=== PATIENT | female | born 1960 ===

== ENCOUNTER → 2021-01-02 10:03 | Outpatient (BNVA) | payer OTHER, SELFPAY | PROVIDERS: Visit Provider Nurse Practitioner ==

== ENCOUNTER 2021-05-15 11:48 | Emergency (ER) | payer OTHER, SELFPAY ==
--- NOTE | ~2021-05-15 | CT_ITS ---
EXAMINATION: CT ABDOMEN AND PELVIS WITHOUT CONTRAST CLINICAL INFORMATION: Left lower quadrant abdominal pain and flank pain. COMPARISON: None TECHNIQUE: Multidetector volumetric imaging was performed from the superior aspect of the liver through the pubic symphysis. Sagittal and coronal reformatted images were obtained on the technologist's workstation. This CT examination was performed using dose optimization techniques as appropriate, variously including the following: *Automated exposure control *Adjustment of mA and/or kV according to patient size (this includes techniques or standardized protocols for targeted exams where dose is matched to indication/reason for exam; i.e. extremities or head) *Use of iterative reconstruction technique DLP: 645 mGy-cm FINDINGS: LUNG BASES: The visualized lung bases are unremarkable. No pleural or pericardial effusion. LIVER, GALLBLADDER, AND BILIARY TREE: There is fatty infiltration of the liver without focal mass or intrahepatic bile duct dilatation. Hepatomegaly is present with vertical span of 21 cm. Status post cholecystectomy. PANCREAS: Unremarkable. SPLEEN: Unremarkable. ADRENAL GLANDS: Unremarkable. KIDNEYS AND URETERS: The kidneys are normal in size, shape, and attenuation. No hydronephrosis, hydroureter, or definite ureteral calculi seen. No perinephric stranding. BLADDER: Unremarkable. GASTROINTESTINAL TRACT: No dilated loops of large or small bowel are evident. No free air or free fluid is seen. No evidence of acute diverticulitis or colitis. There is sigmoid diverticulosis. The appendix is visualized and appears unremarkable. ABDOMINAL WALL: No significant hernia is appreciated. LYMPH NODES: No lymphadenopathy appreciated. VASCULAR: Unremarkable. PELVIC VISCERA: No suspicious mass. Numerous phleboliths are present. OSSEOUS STRUCTURES: No suspicious destructive bony lesions identified. 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 CT/CT abdomen pelvis wo con IMPRESSION: Diffuse fatty infiltration of the liver with hepatomegaly. No evidence of obstructive uropathy. No evidence of acute diverticulitis.
[2021-05-15 11:59] VITALS: BP 165/75; PULSE 59; RESP 18; TEMP 36.4; O2SAT 99
[2021-05-15 12:21] VITALS: BP 142/78; PULSE 76; RESP 16; TEMP 36.8; O2SAT 98; BMI 31.8
[2021-05-15 13:12] VITALS: BP 125/63; PULSE 54; RESP 17; O2SAT 100
[2021-05-15 13:18] LABS: MANUAL DIFF FLAG NO
[2021-05-15 13:20] LABS: Basophils Percent Auto 0.6 % (0-2); Eosinophils Absolute Auto 0.1 X10*3/uL (0.0-0.4); Eosinophils Percent Auto 2.5 % (0-4); Hematocrit 38.7 % (37-47); Hemoglobin 12.6 g/dl (12.0-16.0); Imm Gran Abs Auto 0.01 X10*3/uL (0.00-0.03); Imm Gran Pct Auto 0.2 % (0.0-0.4); Lymphocytes Percent Auto 41.2 % (20-40); Mean Corpuscular HGB Conc 32.6 g/dl (31.0-35.0); Mean Corpuscular Hemoglobin 29.9 pg (27.0-33.0); Mean Corpuscular Volume 91.9 fL (80-98); Mean Platelet Volume 10.2 fL (9.4-12.3); Monocytes Absolute Auto 0.3 X10*3/uL (0.1-1.2); Neutrophils Absolute Auto 2.4 X10*3/uL (2.0-8.3); Neutrophils Percent Auto 48.5 % (45-73); Platelet Count 227 X10*3/uL (160-400); Red Blood Count 4.21 X10*6/uL (4.20-5.50); White Blood Count 4.9 X10*3/uL (4.8-10.8)
--- NOTE | 2021-05-15 13:50 | ED.ABDPAIN ---
HPI - Abdominal Pain General Chief Complaint: Abdominal Pain Stated Complaint: urine problems Time Seen by Provider: 05/15/21 12:18 Source: patient Mode of arrival: ambulatory Limitations: language barrier (Vietnamese [place]) History of Present Illness HPI narrative: 60-year-old female with a past medical history of hypertension, constipation and GERD presenting to the ED with complaints of left lower quadrant/suprapubic abdominal pain with associated dysuria/frequency and white thin malodorous discharge intermittently for the past 2 months worse today. Initially she presented to the urgent care and they obtained a UA which was negative for nitrates or white blood cells and leukocytes although she had trace of red blood cells therefore they sent her here for further evaluation and treatment to rule out kidney stones. MD elicited complaint: abdominal pain Pertinent past history: constipation Onset (ago): month(s) (Intermittently for the past 2 months) Location: LLQ and suprapubic Severity: mild Quality: cramping and aching Migration to: no migration Exacerbating factors: nothing and other Relieving factors: nothing Associated symptoms: denies other symptoms Related Data Previous Rx's Medication Instructions Recorded lisinopril 2.5 mg tablet 2.5 mg PO DAILY 90 Days #90 tab 03/04/21 omeprazole 20 mg capsule,delayed 20 mg PO DAILY 90 Days #90 cap 03/24/21 release fluconazole [Diflucan] 150 mg PO Q3D #2 tab 05/15/21 metronidazole [Flagyl] 500 mg PO BID 7 Days #14 tab 05/15/21 Allergies Allergy/AdvReac Type Severity Reaction Status Date / Time penicillin G Allergy Unknown rash, Verified 08/01/20 00:00 swelling penicillin V Allergy Unknown swelling Verified 12/21/19 00:00 Review of Systems Review of Systems Constitutional : No Fever, No Chills ENT/Mouth : No sore throat, No Rhinorrhea Eyes: No Eye Pain, No Redness Cardiovascular : No Chest Pain, No SOB Respiratory : No Cough, No Sputum, No Wheezing Gastrointestinal : Positive abdominal pain,No constipation, No Nausea, No Vomiting, No Diarrhea Genitourinary : Positive abnormal discharge, positive dysuria/urinary urgency/frequency, No irregular bleeding, No pelvic pain Musculoskeletal : No Myalgias Skin : No rash Neuro : No Weakness, No Headache Psych : No Anxiety/Panic, No Depression Heme/Lymph: No bruising, No Lymphadenopathy Endocrine : No Polyuria, No Polydipsia Yes all other systems are reviewed and are negative Physical Exam Vital Signs: Vital Signs: Last Vital Signs Temp 98.2 F 05/15/21 12:21 Pulse 54 05/15/21 13:12 Resp 17 05/15/21 13:12 BP 125/63 05/15/21 13:12 Pulse Ox 100 05/15/21 13:12 Body Mass Index 31.8 vital signs have been reviewed as normal and appeared to be correct. Blood pressure normal. Heart rate normal. Respiration rate normal. Temperature normal. Oxygen saturation normal. Appearance: Alert. Oriented X3. No acute distress. Head: Normal external exam. Normocephalic. Atraumatic. Eyes: PERRLA. EOMI. Conjunctiva and sclera normal. Eyelids normal. ENT: Pharynx normal. Uvula midline. Moist mucous membranes. Neck: Normal inspection. Neck supple. FROM. No adenopathy. Thyroid Normal. No meningeal signs. No neck mass noted. CVS: Normal heart rate and rhythm. Heart sound normal. No murmurs noted. Pulses normal throughout. Respiratory: No respiratory distress. Painless inspiration. Breath sounds normal. No wheezes/rales/rhonchi noted. Chest nontender. No accessory muscle usage noted or decreased air movement noted. Abdomen: Soft and nontender. Bowel sounds normal in all 4 quadrants. No distention noted. No organomegaly noted. No visible injury noted. : Supervised by SAQIB Llamas. Normal external appearance of urethra. No lesions/lacerations or tenderness noted. Speculum exam normal appearance/palpation of vagina normal. Patient with a thin cottage cheese white colored discharge. Otherwise no vaginal erythema. No foreign bodies noted. No vaginal laceration/lesions or active bleeding noted. No tissue present in vagina. No vaginal mass noted. No vaginal swelling noted. No vaginal tenderness noted. Normal appearance of cervix. Normal palpation of cervix. Cervical os is closed. No abnormal cervical discharge noted. No cervical lesion/mass. No Bartholin cyst noted. No cervical motion tenderness noted. Negative chandelier sign. Normal bimanual exam. Uterine size normal. Bladder normal to palpation. Uterine consistency normal. Normal cervical palpation. Uterine mobility normal. Uterine shape normal. Normal adnexa. Normal rectovaginal exam. Back: No CVA tenderness. Full range of motion noted. Skin: Skin warm and dry. Normal skin color. Normal skin turgor. No rashes/lesions/lacerations noted. Extremities: No lower extremity edema. Extremities exhibit normal range of motion. Extremities nontender. Neuro: Oriented X 3. No motor deficit. No sensory deficit. Reflexes normal. Course Course Course Narrative: 60-year-old female with a past medical history of hypertension, constipation and GERD presenting to the ED with complaints of left lower quadrant/suprapubic abdominal pain with associated dysuria/frequency and white thin malodorous discharge intermittently for the past 2 months worse today. - labs obtained and all within normal limits. Patient had a outpatient UA from urgent care which was negative for any evidence of UTI only had trace of blood. CT scan of abdomen and pelvis revealed diffuse fatty infiltrate of liver with hepatomegaly otherwise no other acute processes were noted. - on vaginal exam it appears that patient has a yeast infection therefore will treat for bacterial vaginosis and yeast. Along with instructions follow-up with her primary care provider and to return if any new or worsening symptoms. Patient and daughter at bedside understand and agree with this plan. MDM - Abdominal Pain Medical Records Attestation: I reviewed the patient's medical records. Lab Data Attestation: I reviewed the patient's lab results. Result diagrams: 05/15/21 13:02 05/15/21 13:02 Labs: Lab Results 05/15/21 05/15/21 Range/Units 13:02 13:02 WBC 4.9 (4.8-10.8) X10*3/uL RBC 4.21 (4.20-5.50) X10*6/uL Hgb 12.6 (12.0-16.0) g/dl Hct 38.7 (37-47) % MCV 91.9 (80-98) fL MCH 29.9 (27.0-33.0) pg MCHC 32.6 (31.0-35.0) g/dl RDW 13.0 (11.0-16.0) % Plt Count 227 (160-400) X10*3/uL MPV 10.2 (9.4-12.3) fL Immature Gran % (Auto) 0.2 (0.0-0.4) % Neut % (Auto) 48.5 (45-73) % Lymph % (Auto) 41.2 H (20-40) % [place] % (Auto) 7.0 (2-11) % Eos % (Auto) 2.5 (0-4) % Baso % (Auto) 0.6 (0-2) % Lymph # (Auto) 2.0 (1.2-4.9) X10*3/uL [place] # (Auto) 0.3 (0.1-1.2) X10*3/uL Eos # (Auto) 0.1 (0.0-0.4) X10*3/uL Baso # (Auto) 0.0 (0.0-0.2) X10*3/uL Abs Immat Gran (auto) 0.01 (0.00-0.03) X10*3/uL Absolute Neuts (auto) 2.4 (2.0-8.3) X10*3/uL Absolute Nucleated RBC 0.000 (0.0-0.012) X10*3/uL Nucleated RBC % (auto) 0.0 (0.0-0.2) /100WBC Sodium 142 (135-145) mmol/L Potassium 4.1 (3.3-5.1) mmol/L Chloride 108 (96-108) mmol/L Carbon Dioxide 26 (22-29) mmol/L Anion Gap 12 (12-20) BUN 14 (9-16) mg/dL Creatinine 0.69 (0.5-1.4) mg/dL Estim Creat Clear Calc 86.4 Estimated GFR > 60 Random Glucose 93 (60-115) mg/dL Calcium 9.2 (8.4-10.2) mg/dL Magnesium 2.1 (1.6-2.6) mg/dL Total Bilirubin 0.6 (0.0-1.0) mg/dL AST 21 (5-31) U/L ALT 37 H (0-31) U/L Alkaline Phosphatase 59 (39-117) U/L Total Protein 6.7 (6.5-8.0) g/dL Albumin 4.2 (3.5-5.0) g/dL Lipase 15 (8-78) U/L Beta HCG, Quant 3 mIU/mL Imaging Data CT scan of abdomen pelvis without IV contrast: Attestation: I personally reviewed and interpreted this imaging study as follows: Radiologist's impression: FINDINGS: LUNG BASES: The visualized lung bases are unremarkable. No pleural or pericardial effusion. LIVER, GALLBLADDER, AND BILIARY TREE: There is fatty infiltration of the liver without focal mass or intrahepatic bile duct dilatation. Hepatomegaly is present with vertical span of 21 cm. Status post cholecystectomy. PANCREAS: Unremarkable. SPLEEN: Unremarkable. ADRENAL GLANDS: Unremarkable. KIDNEYS AND URETERS: The kidneys are normal in size, shape, and attenuation. No hydronephrosis, hydroureter, or definite ureteral calculi seen. No perinephric stranding. BLADDER: Unremarkable. GASTROINTESTINAL TRACT: No dilated loops of large or small bowel are evident. No free air or free fluid is seen. No evidence of acute diverticulitis or colitis. There is sigmoid diverticulosis. The appendix is visualized and appears unremarkable. ABDOMINAL WALL: No significant hernia is appreciated. LYMPH NODES: No lymphadenopathy appreciated. VASCULAR: Unremarkable. PELVIC VISCERA: No suspicious mass. Numerous phleboliths are present. OSSEOUS STRUCTURES: No suspicious destructive bony lesions identified. 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 CT/CT abdomen pelvis wo con IMPRESSION: Diffuse fatty infiltration of the liver with hepatomegaly. No evidence of obstructive uropathy. No evidence of acute diverticulitis. Discharge Plan Discharge Clinical Impression: Abdominal pain, Divya vaginitis, Bacterial vaginosis, Hepatosplenomegaly Patient Disposition: Home, Self-Care Instructions: Bacterial Vaginosis (ED), Yeast Infection (ED) Prescriptions: New metronidazole [Flagyl] 500 mg tablet 500 mg PO BID 7 Days Qty: 14 RF: 0 fluconazole [Diflucan] 150 mg tablet 150 mg PO Q3D Qty: 2 RF: 0 No Action lisinopril 2.5 mg tablet 2.5 mg PO DAILY 90 Days Qty: 90 RF: 3 omeprazole 20 mg capsule,delayed release(DR/EC) 20 mg PO DAILY 90 Days Qty: 90 RF: 3 Referrals: Koby Phelps MD [Physician] - 2 days Korin Silva MD [Primary Care Provider] - 2 days Print Language: Vietnamese [facility] Past Medical History Attestation statement: The following information was validated with the patient. Social History Social History Household Members: Children Alcohol intake: never Advance Directives: No Advance Directives Information Provided: No Patient : No Current occupational status: retired
[2021-05-15 13:58] LABS: Anion Gap 12 (12-20)
[2021-05-15 14:00] LABS: Alanine Aminotransferase 37 U/L (0-31); Albumin Level 4.2 g/dL (3.5-5.0); Alkaline Phosphatase 59 U/L (39-117); Aspartate Amino Transferase 21 U/L (5-31); Bilirubin Total 0.6 mg/dL (0.0-1.0); Blood Urea Nitrogen 14 mg/dL (9-16); Calcium 9.2 mg/dL (8.4-10.2); Carbon Dioxide 26 mmol/L (22-29); Chloride 108 mmol/L (96-108); Creatinine Clr Calc Pharmacy 86.4; Estimated Glomerular Filt Rate > 60; Glucose Random 93 mg/dL (60-115); Lipase 15 U/L (8-78); Magnesium 2.1 mg/dL (1.6-2.6); Potassium 4.1 mmol/L (3.3-5.1); Sodium 142 mmol/L (135-145); Total Protein 6.7 g/dL (6.5-8.0)
[2021-05-15 14:26] LABS: HCG Quantitative 3 mIU/mL
[2021-05-15 14:44] VITALS: BP 115/59; PULSE 53; RESP 18; O2SAT 99
--- NOTE | 2021-05-15 15:23 | PC.NURSE ---
discharge instructions given by provider verbally. Written instructions given in Croatian. Pt denies any questions. Peripheral iv removed and pressure bandage applied
[2021-05-16 09:41] LABS: BV Int Neg Control Negative (Negative); BV Int Pos Control Positive (Positive)
== END 2021-05-15 15:25 | disposition home or self-care (01) ==
PROVIDERS: Physician Assistant Medical; Emergency Provider Emergency Medicine Emergency Medical Services; PCP Internal Medicine
DX: B37.3 Candidiasis of vulva and vagina (principal); R10.32 Left lower quadrant pain; R16.2 Hepatomegaly with splenomegaly, not elsewhere classified; I10 Essential (primary) hypertension
CPT/HCPCS: 36415; 74176; 80053; 83690; 83735; 84702; 85025; 87480; 87510; 87660; 96360; 99284

== ENCOUNTER 2022-03-22 09:55 | Outpatient (REF) | payer OTHER, SELFPAY ==
[2022-03-22 11:06] LABS: Alanine Aminotransferase 34 U/L (0-31); Albumin Level 4.3 g/dL (3.5-5.0); Alkaline Phosphatase 64 U/L (39-117); Anion Gap 9 (12-20); Aspartate Amino Transferase 20 U/L (5-31); Bilirubin Total 0.6 mg/dL (0.0-1.0); Blood Urea Nitrogen 9 mg/dL (9-16); Calcium 9.7 mg/dL (8.4-10.2); Carbon Dioxide 31 mmol/L (22-29); Chloride 104 mmol/L (96-108); Cholesterol 193 mg/dL; Estimated Glomerular Filt Rate > 60; Glucose Fasting 101 mg/dL (60-99); HDL Cholesterol 38 mg/dL; LDL Cholesterol Calculated 80 mg/dl; Potassium 4.3 mmol/L (3.3-5.1); Sodium 140 mmol/L (135-145); Total Protein 7.3 g/dL (6.5-8.0); Triglycerides 375 mg/dL
== END 2022-03-22 09:56 | disposition home or self-care (01) ==
LOC: HO.LAB 09:55
PROVIDERS: PCP Internal Medicine; Visit Provider Internal Medicine
DX: E78.5 Hyperlipidemia, unspecified (principal); I10 Essential (primary) hypertension
CPT/HCPCS: 36415; 80053; 80061

== ENCOUNTER 2022-03-28 15:02 | Outpatient (REF) | payer OTHER, SELFPAY ==
--- NOTE | ~2022-03-28 | MM_ITS ---
EXAMINATION: MM SCREENING DIGITAL BREAST TOMOSYNTHESIS, BILATERAL CLINICAL INFORMATION: Screening. Asymptomatic. The lifetime risk of breast cancer based on the Tyrer-Cuzick Model is 5.2%. COMPARISON: Mammography: February 23, 2019 and studies dating back to September 09, 2013 TECHNIQUE: Digital breast tomosynthesis is performed in both the craniocaudal and mediolateral oblique views along with computer-aided detection (CAD). Synthesized 2D images are generated from the tomosynthesis. FINDINGS: There are scattered areas of fibroglandular density (ACR BI-RADS breast composition Category b). There are no significant masses, abnormal calcifications, or other abnormalities. Stable region of asymmetric density seen about the superior aspect of the left breast. MM/MM tomosynthesis screening BI IMPRESSION: There are no significant changes from prior study. ASSESSMENT: BI-RADS 1: Negative RECOMMENDATION: Routine annual mammography screening. This patient's information was entered into a reminder system with a target due date for their next mammogram.
== END 2022-03-28 15:03 | disposition home or self-care (01) ==
LOC: HO.MAMMO 15:02
PROVIDERS: PCP Internal Medicine; Visit Provider Internal Medicine
DX: Z12.31 Encounter for screening mammogram for malignant neoplasm of breast (principal)
CPT/HCPCS: 77063; 77067

== ENCOUNTER → 2022-03-29 09:10 | Outpatient (BNVA) | payer OTHER, SELFPAY | PROVIDERS: PCP Internal Medicine; Referring Provider Internal Medicine; Visit Provider Nurse Practitioner | DX: K21.9 Gastro-esophageal reflux disease without esophagitis (principal); K59.00 Constipation, unspecified; R14.0 Abdominal distension (gaseous); Z80.0 Family history of malignant neoplasm of digestive organs | CPT/HCPCS: 99212 ==

== ENCOUNTER → 2022-07-27 10:47 | Outpatient (REF) | payer OTHER, SELFPAY ==
--- NOTE | 2022-07-27 10:53 | ECG_ITS ---
Test Reason : PRE OP Blood Pressure : / mmHG Vent. Rate : 059 BPM Atrial Rate : 059 BPM P-R Int : 144 ms QRS Dur : 098 ms QT Int : 450 ms P-R-T Axes : 039 -14 006 degrees QTc Int : 445 ms Sinus bradycardia with sinus arrhythmia Minimal voltage criteria for LVH, may be normal variant ( [place] product ) Borderline ECG No previous ECGs available Referred By: Korin Ontiveros Electronically Signed By:LEXI BOOGIE
[2022-07-27 11:16] LABS: MANUAL DIFF FLAG NO
[2022-07-27 12:05] LABS: Basophils Absolute Auto 0.1 X10*3/uL (0.0-0.2); Eosinophils Absolute Auto 0.1 X10*3/uL (0.0-0.4); Eosinophils Percent Auto 2.6 % (0-4); Hematocrit 41.4 % (37.0-47.0); Hemoglobin 13.6 g/dl (12.0-16.0); Imm Gran Abs Auto 0.02 X10*3/uL (0.00-0.03); Imm Gran Pct Auto 0.4 % (0.0-0.4); Lymphocytes Percent Auto 38.5 % (20-40); Mean Corpuscular HGB Conc 32.9 g/dl (31.0-35.0); Mean Corpuscular Volume 91.2 fL (80.0-98.0); Mean Platelet Volume 10.9 fL (9.4-12.3); Monocytes Absolute Auto 0.4 X10*3/uL (0.1-1.2); Monocytes Percent Auto 7.5 % (2-11); Neutrophils Absolute Auto 2.5 x10*3/uL (2.0-8.3); Platelet Count 239 X10*3/uL (160-400); Red Blood Count 4.54 X10*6/uL (4.20-5.50); Red Cell Distribution Width 12.9 % (11.0-16.0); White Blood Count 5.1 X10*3/uL (4.8-10.8)
[2022-07-27 12:40] LABS: Alanine Aminotransferase 33 U/L (0-31); Albumin Level 4.5 g/dL (3.5-5.0); Alkaline Phosphatase 60 U/L (39-117); Anion Gap 14 (12-20); Aspartate Amino Transferase 20 U/L (5-31); Bilirubin Total 0.7 mg/dL (0.0-1.0); Blood Urea Nitrogen 14 mg/dL (9-16); Calcium 9.4 mg/dL (8.4-10.2); Carbon Dioxide 27 mmol/L (22-29); Chloride 104 mmol/L (96-108); Estimated Glomerular Filt Rate > 60; Glucose Fasting 93 mg/dL (60-99); Potassium 4.5 mmol/L (3.3-5.1); Sodium 140 mmol/L (135-145); Total Protein 7.4 g/dL (6.5-8.0)
== END ==
LOC: HO.CARD 10:47
PROVIDERS: PCP Internal Medicine; Visit Provider Internal Medicine
DX: Z01.818 Encounter for other preprocedural examination (principal); H26.9 Unspecified cataract; Z80.0 Family history of malignant neoplasm of digestive organs
CPT/HCPCS: 36415; 80053; 85025; 93005

== ENCOUNTER 2023-08-01 09:58 | Outpatient (AMB) | payer OTHER, SELFPAY ==
[2023-08-01 09:59] VITALS: BP 122/68; PULSE 66; O2SAT 99; BMI 32.0
--- NOTE | 2023-08-01 09:59 | MHC.PC.OV ---
Vital Signs 08/01/23 09:59 Height 5 ft 2 in Weight 175 lb BMI 32.0 BP 122/68 Blood Pressure Location Lt brachial Position Sitting Pulse 66 Pulse Source Pulse Oximeter Temp Source Skin Pulse Oximetry (%) 99 Oxygen Delivery Method Room Air Intake Visit Reasons: Medication Follow Up Intake Note: Patient is here to follow up on medication Mix[employer] Products Required: Yes Mix[employer] Products Language: Micronesian Allergies penicillin G Allergy (Unknown, Verified 08/01/23 10:09) rash, swelling penicillin V Allergy (Unknown, Verified 08/01/23 10:09) swelling Medication List - Last Reconciled 08/01/23 by JOHN Valenzuela lisinopril 2.5 mg PO DAILY 90 days omeprazole 20 mg PO DAILY 90 days sennosides (Nadja-kylie) 17.2 mg (2 x 8.6 mg) PO BEDTIME PRN 30 days Tobacco use date assessed: 08/01/23 HPI Medication Follow Up HPI Details Patient is a 63-year-old female who presents today to follow-up on medications. Patient of Dr. Morales. Medical history significant for GERD, constipation, hypertension. Patient reports that she is compliant with medications and denies side effects. She reports left inner ankle slightly increased pigmentation and intermittent sensitive sensation for the past 1 year. Denies injury, no pain with range of motion. No shortness of breath or chest pain. Patient is a Micronesian-speaking and Devora was helping with interpretation. [facility] Medical History Cataracts, bilateral Mild recurrent major depression Surgical History H/O colonoscopy H/O esophagogastroduodenoscopy History of History of cholecystectomy Family History Father Migraine Mother Alzheimer disease Diabetes Hypertension Depression Cancer Mental health disorder Social History Household Members: Children Housing: Apartment Alcohol intake: current Alcohol intake frequency: holidays/special occasions only Alcohol type: beer and other Patient Tobacco Use Status: Former Tobacco user Tobacco use type: Cigarette e-Cigarette/Vaping Use: Never Used Second Hand Smoke Exposure: No service: No Current occupational status: retired Cognitive needs: No Hearing needs: No Vision needs: No Questionnaire Thrive Questionnaire Date Thrive assessed: 08/01/23 I am a: Patient What is your living situation today?: I have a steady place to live Within the past 12 months, did the food you bought not last and you didn't have the money to get more?: Never true Within the past 12 months, did you worry whether your food would run out before you got money to buy more?: Never true Currently or been in a relationship where the following occur: no concerns reported AUDIT C Alcohol Use Questionnaire (AUDIT-C) 1. How often do you have a drink containing alcohol?: Monthly or less 2. How many drinks containing alcohol do you have on a typical day when you are drinking?: 1 or 2 3. How often do you have six or more drinks on one occasion?: Never Total Score: 1 Score Reviewed/Action Taken: No LEON-7 AMB Questionnaire LEON-7 Date LEON - 7 assessed: 03/20/22 Source: Developed by Drs. Elfego Parra, Pratima Jimenez, Timothy Mayen and colleagues, with an educational maia from [employer]. Review of Systems Const Denies body aches, Denies chills, Denies fever(s) and Denies headache(s) Eyes Denies change in vision ENT Denies dizziness, Denies otalgia, Denies headache(s), Denies nasal discharge, Denies sinus pain and Denies sore throat Card Denies chest pain, Denies edema, Denies lightheadedness and Denies dyspnea Resp Denies cough, Denies dyspnea and Denies wheezing GI Denies abdominal pain, Reports constipation, Denies diarrhea, Denies nausea and Denies vomiting Denies dysuria Musc Denies myalgias Skin/Breast Reports as per HPI and Denies rash Neuro Denies dizziness and Denies headache(s) Aller/Immun Denies wheezing Physical exam (Primary Care) Vital Signs: Last Vital Signs Pulse 66 08/01/23 09:59 BP 122/68 08/01/23 09:59 Pulse Ox 99 08/01/23 09:59 Oxygen Delivery Method Room Air 08/01/23 09:59 BMI result Body Mass Index 32.0 Tobacco/Smoking Status: Tobacco use Status Tobacco use date assessed 08/01/23 08/01/23 10:06 Patient Tobacco Use Status Former Tobacco user 08/01/23 10:06 Tobacco use type Cigarette 08/01/23 10:06 e-Cigarette/Vaping Use Never Used 08/01/23 10:06 Thrive Assessment: Date of Thrive Assessment Date Thrive assessed 08/01/23 08/01/23 10:06 Currently or been in a relationship where the following occur: no concerns reported Const General: cooperative and no acute distress Orientation/consciousness: patient oriented x3 HENMT Head: Yes normocephalic and Yes atraumatic Mouth: oropharynx normal and moist mucous membranes Throat: Yes posterior oropharynx normal Eyes General: appearance normal, both eyes and all related structures Neck Neck: Yes normal visual inspection, Yes full ROM and Yes no lymphadenopathy Resp Effort & Inspection: normal respiratory effort and able to speak in complete sentences Auscultation: clear to auscultation bilaterally, no crackles, no rales, no rhonchi and no wheezes Cardio Rate: regular rate Rhythm: regular rhythm Heart sounds: S1 normal heart sound present and S2 normal heart sound present GI Auscultation: normal bowel sounds Skin Other: Right inner ankle mild spider veins noted, nontender, right ankle with full range of motion General skin exam: no rashes or lesions noted Neuro General: patient oriented x3 Gait exam (Neuro): Normal gait present Extrem General: Yes full ROM and No edema Assessment and Plan Assessment & Plan (1) Spider veins: Code(s): I78.1 - Nevus, non-neoplastic Plan: Referral to vascular surgery for an evaluation (2) Hypertension: Code(s): I10 - Essential (primary) hypertension Plan: Goal BP equal or less than 140/90 Continue lisinopril Low-sodium diet and weight loss (3) Constipation: Code(s): K59.00 - Constipation, unspecified Plan: Increase dietary fiber, fluid consumption Continue sennosides at bedtime p.r.n. (4) GERD (gastroesophageal reflux disease): Code(s): K21.9 - Gastro-esophageal reflux disease without esophagitis Plan: Stable with omeprazole 20 mg daily Avoid GERD trigger foods Do not lay down 2-3 hours after evening meal Orders: Orders Comprehensive [place]. Panel Fast Today I10 - Essential (primary) hypertension Lipid Panel Today I10 - Essential (primary) hypertension TSH reflex Free T4 Today I10 - Essential (primary) hypertension Vitamin B12 and Folate Today I10 - Essential (primary) hypertension Referrals Vascular Surgery Referral I78.1 - Nevus, non-neoplastic Medications: Refilled sennosides (Nadja-kylie) 17.2 mg (2 x 8.6 mg) PO BEDTIME 30 days PRN 60 tabs 3RF constipation Coding Level of Care Code Est Pt Level 4 (45953) Diagnoses Spider veins I78.1 Hypertension I10 Constipation K59.00 GERD (gastroesophageal reflux disease) K21.9
== END 2023-08-01 10:26 | disposition home or self-care (01) ==
PROVIDERS: PCP Internal Medicine; Visit Provider Nurse Practitioner Family
DX: I78.1 Nevus, non-neoplastic (principal); I10 Essential (primary) hypertension; K59.00 Constipation, unspecified; K21.9 Gastro-esophageal reflux disease without esophagitis
CPT/HCPCS: 99214

== ENCOUNTER 2023-08-21 10:44 | Outpatient (REF) | payer OTHER, SELFPAY ==
[2023-08-21 12:59] LABS: Alanine Aminotransferase 33 U/L (0-31); Albumin Level 4.4 g/dL (3.5-5.0); Alkaline Phosphatase 58 U/L (39-117); Anion Gap 11 (12-20); Aspartate Amino Transferase 20 U/L (5-31); Bilirubin Total 0.5 mg/dL (0.0-1.0); Blood Urea Nitrogen 12 mg/dL (9-16); Calcium 9.6 mg/dL (8.4-10.2); Carbon Dioxide 28 mmol/L (22-29); Chloride 108 mmol/L (96-108); Cholesterol 188 mg/dL (<200); Estimated Glomerular Filt Rate > 60; Glucose Fasting 98 mg/dL (60-99); HDL Cholesterol 45 mg/dL (>40); LDL Cholesterol Calculated 111 mg/dL (<100); Potassium 3.9 mmol/L (3.3-5.1); Sodium 143 mmol/L (135-145); Total Protein 7.3 g/dL (6.5-8.0); Triglycerides 161 mg/dL (<150)
[2023-08-21 13:20] LABS: TSH reflex Free T4 1.33 uIU/mL (0.32-4.0)
[2023-08-21 13:41] LABS: Folate 11.5 ng/mL (> or = 4.0); Vitamin B12 > 2000 pg/mL (200-900)
== END 2023-08-21 10:45 | disposition home or self-care (01) ==
LOC: HO.LAB 10:44
PROVIDERS: PCP Internal Medicine; Visit Provider Nurse Practitioner Family
DX: I10 Essential (primary) hypertension (principal)
CPT/HCPCS: 36415; 80053; 80061; 82607; 82746; 84443

== ENCOUNTER 2023-08-26 16:26 | Outpatient (AMB) | payer OTHER, SELFPAY ==
[2023-08-26 16:27] VITALS: BP 126/70; BMI 31.8
--- NOTE | 2023-08-26 16:27 | A.OFFPC_ITS ---
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 Accompanied by: Daughter Allergies penicillin G Allergy (Unknown, Verified 08/26/23 16:30) rash, swelling penicillin V Allergy (Unknown, Verified 08/26/23 16:30) swelling Medication List - Last Reconciled 08/26/23 by Korin Ontiveros MD lisinopril 2.5 mg PO DAILY 90 days omeprazole 20 mg PO DAILY 90 days sennosides (Nadja-kylie) 17.2 mg (2 x 8.6 mg) PO BEDTIME PRN 30 days Tobacco use date assessed: 08/01/23 Dental Screening Dental Screen Date: 08/26/23 Did you have a dental visit in the last 12 months?: Yes Did you have a dental problem in the last 6 months where you did not have access to dental care?: No Was dental information given to patient?: Patient has dentist HPI HPI Comments History of Present Illness Details This is a 63-year-old female with hypertension, mild recurrent major depression, constipation and GERD that comes accompanied by daughter for follow- up on her conditions. Blood pressure stable. Labs are within normal limits. GERD stable with medications. Constipation well control with high-fiber diet and meds. Depression is in remission. No chest pain or shortness of breath. [facility] Medical History Mild recurrent major depression Cataracts, bilateral Surgical History H/O colonoscopy H/O esophagogastroduodenoscopy History of cholecystectomy History of Family History Father Migraine Mother Alzheimer disease Diabetes Hypertension Depression Cancer Mental health disorder Social History Household Members: Children Housing: Apartment Alcohol intake: current Alcohol intake frequency: holidays/special occasions only Alcohol type: beer and other Patient Tobacco Use Status: Former Tobacco user Tobacco use type: Cigarette e-Cigarette/Vaping Use: Never Used Second Hand Smoke Exposure: No service: No Current occupational status: retired Cognitive needs: No Hearing needs: No Vision needs: No Questionnaire Thrive Questionnaire Date Thrive assessed: 08/01/23 LEON-7 AMB Questionnaire LEON-7 Date LEON - 7 assessed: 03/20/22 Source: Developed by Drs. Elfego Parra, Pratima Jimenez, Timothy Mayen and colleagues, with an educational maia from [employer]. Review of Systems Const All systems reviewed & are unremarkable except as noted in HPI and below Eyes Reports no additional complaints, Denies change in vision and Denies other visual disturbances Card Denies chest pain at rest, Denies chest pain with activity, Denies edema, Denies irregular heart rhythm, Denies claudication, Denies dyspnea, Denies dyspnea on exertion, Denies orthopnea, Denies paroxysmal nocturnal dyspnea and Denies slow heart rate Resp Denies cough, Denies dyspnea and Denies dyspnea on exertion GI Denies abdominal pain, Denies change in bowel habits, Denies excessive flatus, Denies nausea and Denies vomiting Denies urinary incontinence, Denies urinary hesitancy and Denies urinary urgency Musc Denies abnormal gait, Denies atrophy, Denies deformity and Denies limited range of motion Skin/Breast Denies bleeding lesions, Denies changing lesions and Denies rash Neuro Denies abnormal gait and Denies lack of coordination Physical exam (Primary Care) Vital Signs: Last Vital Signs BP 126/70 08/26/23 16:27 BMI result Body Mass Index 31.8 Tobacco/Smoking Status: Tobacco use Status Tobacco use date assessed 08/01/23 08/26/23 16:31 Patient Tobacco Use Status Former Tobacco user 08/26/23 16:31 Tobacco use type Cigarette 08/26/23 16:31 e-Cigarette/Vaping Use Never Used 08/26/23 16:31 Thrive Assessment: Date of Thrive Assessment Date Thrive assessed 08/01/23 08/26/23 16:31 Eyes General: appearance normal, both eyes and all related structures Eyelids: Yes eyelids normal Conjunctivae: conjunctivae normal Neck Neck: Yes normal visual inspection and Yes supple Resp Effort & Inspection: normal respiratory effort Auscultation: clear to auscultation bilaterally Cardio Jugular venous distension: no JVD Rate: regular rate Rhythm: regular rhythm Heart sounds: S1 normal heart sound present and S2 normal heart sound present Extrem General: Yes full ROM Assessment and Plan Assessment & Plan (1) Hypertension: Code(s): I10 - Essential (primary) hypertension Plan: Continue lisinopril. Blood pressure goal is equal or less than 130/80. (2) Mild recurrent major depression: Code(s): F33.0 - Major depressive disorder, recurrent, mild Plan: In remission (3) Constipation: Code(s): K59.00 - Constipation, unspecified Plan: Continue senna as needed. (4) GERD (gastroesophageal reflux disease): Code(s): K21.9 - Gastro-esophageal reflux disease without esophagitis Plan: Continue PPIs as needed. Orders: Orders MM screening mammo BI Today Z12.31 - Encounter for screening mammogram for malignant neoplasm of breast Coding Level of Care Code Est Pt Level 4 (15918) Diagnoses Hypertension I10 Mild recurrent major depression F33.0 Constipation K59.00 GERD (gastroesophageal reflux disease) K21.9 Time Spent (min) 23
== END 2023-08-26 16:53 | disposition home or self-care (01) ==
PROVIDERS: PCP Internal Medicine; Visit Provider Internal Medicine
DX: I10 Essential (primary) hypertension (principal); F33.0 Major depressive disorder, recurrent, mild; K59.00 Constipation, unspecified; K21.9 Gastro-esophageal reflux disease without esophagitis
CPT/HCPCS: 99214

== ENCOUNTER 2023-10-01 09:30 | Outpatient (REF) | payer OTHER, SELFPAY ==
--- NOTE | ~2023-10-01 | MM_ITS ---
EXAMINATION: MM SCREENING DIGITAL BREAST TOMOSYNTHESIS, BILATERAL CLINICAL INFORMATION: Screening. Asymptomatic. COMPARISON: Mammography: This study is compared with prior exams dating back to 2019. TECHNIQUE: Digital breast tomosynthesis is performed in both the craniocaudal and mediolateral oblique views along with computer-aided detection (CAD). Synthesized 2D images are generated from the tomosynthesis. FINDINGS: There are scattered areas of fibroglandular density (ACR BI-RADS breast composition Category b). There are no significant masses, abnormal calcifications, or other abnormalities. There is a tissue marker in the right breast from prior benign percutaneous biopsy. MM/MM tomosynthesis screening BI IMPRESSION: No mammographic evidence of malignancy. ASSESSMENT: BI-RADS BI-RADS 1 - Negative RECOMMENDATION: Routine annual mammography screening. 1 year F/U This examination should not preclude the clinical evaluation of a suspicious palpable abnormality. This patient's information was entered into a reminder system with a target due date for their next mammogram.
== END 2023-10-01 09:31 | disposition home or self-care (01) ==
LOC: HO.MAMMO 09:30
PROVIDERS: PCP Internal Medicine; Visit Provider Internal Medicine
DX: Z12.31 Encounter for screening mammogram for malignant neoplasm of breast (principal)
CPT/HCPCS: 77063; 77067

== ENCOUNTER → 2023-10-01 09:45 | Outpatient (BNV) | payer OTHER, SELFPAY | PROVIDERS: PCP Internal Medicine; Visit Provider Radiology Diagnostic Radiology | DX: Z12.31 Encounter for screening mammogram for malignant neoplasm of breast (principal) | CPT/HCPCS: 77063; 77067 ==

== ENCOUNTER 2024-03-26 13:28 | Outpatient (AMB) | payer OTHER, SELFPAY ==
--- NOTE | 2024-03-26 13:36 | MHC.PC.OV ---
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 Accompanied by: Daughter Allergies penicillin G Allergy (Unknown, Verified 03/26/24 13:56) rash, swelling penicillin V Allergy (Unknown, Verified 03/26/24 13:56) swelling Medication List - Last Reconciled 03/26/24 by Korin Ontiveros MD lisinopril 2.5 mg PO DAILY 90 days omeprazole 20 mg PO DAILY 90 days sennosides (Nadja-kylie) 17.2 mg (2 x 8.6 mg) PO BEDTIME PRN 30 days Tobacco use date assessed: 03/26/24 Dental Screening Dental Screen Date: 03/26/24 Did you have a dental visit in the last 12 months?: Yes Did you have a dental problem in the last 6 months where you did not have access to dental care?: No Was dental information given to patient?: Patient has dentist HPI HPI Comments History of Present Illness Details This is a 63-year-old female with history of mild major depression that comes today accompanied by daughter for her physical exam. Depression is in remission with a PHQ-9 negative today. Mammogram done September 2023 and was normal. Pap smear was over 4 years ago and will be referred to OBGYN. Last colonoscopy was 2018 and was normal but was recommended to have it every 5 years due to strong family history of colon cancer. This is why I will make an order through open access. Complains of left leg pain that has been bothering her and I will order ultrasound of the leg today to rule out DVT. Also has venous insufficiency and would like to see vascular surgery for it. [facility] Medical History (Updated 03/26/24 @ 14:58 by Korin Ontiveros MD) Mild recurrent major depression Cataracts, bilateral Surgical History H/O colonoscopy H/O esophagogastroduodenoscopy History of cholecystectomy History of Family History Father Migraine Mother Alzheimer disease Diabetes Hypertension Depression Cancer Mental health disorder Social History Household Members: Children Housing: Apartment Alcohol intake: current Alcohol intake frequency: holidays/special occasions only Alcohol type: beer and other Patient Tobacco Use Status: Former Tobacco user Tobacco use type: Cigarette e-Cigarette/Vaping Use: Never Used Second Hand Smoke Exposure: No service: No Current occupational status: retired Cognitive needs: No Hearing needs: No Vision needs: Yes Questionnaire PHQ-9 Over the last 2 weeks, how often have you been bothered by any of the following problems? 1. Little interest or pleasure in doing things: not at all 2. Feeling down, depressed, or hopeless: not at all 3. Trouble falling or staying asleep, or sleeping too much: not at all 4. Feeling tired or having little energy: not at all 5. Poor appetite or overeating: not at all 6. Feeling bad about yourself - or that you are a failure or have let yourself or your family down: not at all 7. Trouble concentrating on things, such as reading the newspaper or watching television: not at all 8. Moving or speaking so slowly that other people could have noticed. Or the opposite - being so fidgety or restless that you have been moving around a lot more than usual: not at all 9. Thoughts that you would be better off or of hurting yourself in some way: not at all Total score: 0 Depression Screening Interpretation: Negative Depression Screening Done: Yes 89736 - PHQ-9 Billing: Yes Source: Developed by Drs. Elfego Parra, Pratima Jimenez, Timothy Mayen and colleagues, with an educational maia from [employer]. Thrive Questionnaire Date Thrive assessed: 03/26/24 I am a: Patient What is your living situation today?: I have a steady place to live Within the past 12 months, did the food you bought not last and you didn't have the money to get more?: Never true Within the past 12 months, did you worry whether your food would run out before you got money to buy more?: Never true Do you have trouble paying for medicines?: No Do you have trouble getting transportation to medical appointments?: No Do you have trouble paying your heating and electricity bill?: No Do you have trouble taking care of your child, family member or friend?: No Do you have trouble with day-to-day activities such as bathing, preparing meals, shopping, managing finances, etc.?: No Are you currently unemployed and looking for a job?: No Are you interested in more education?: No Please select the resources that you would like help with: None Currently or been in a relationship where the following occur: no concerns reported THRIVE Score: 0 AUDIT C Alcohol Use Questionnaire (AUDIT-C) 1. How often do you have a drink containing alcohol?: Monthly or less 2. How many drinks containing alcohol do you have on a typical day when you are drinking?: 1 or 2 3. How often do you have six or more drinks on one occasion?: Never Total Score: 1 Score Reviewed/Action Taken: No LEON-7 AMB Questionnaire LEON-7 Date LEON - 7 assessed: 03/26/24 Feeling nervous, anxious, or on edge: 0 = Not at all Not being able to stop or control worryin = Not at all Worrying too much about different things: 0 = Not at all Trouble relaxin = Not at all Being so restless that it is hard to sit still: 0 = Not at all Becoming easily annoyed or irritable: 0 = Not at all Feeling afraid as if something awful might happen: 0 = Not at all Total LEON-7 score (0-4 normal; 5-9 mild; 10-14 moderate; 15-21 severe): 0 Source: Developed by Drs. Elfego Parra, Pratima Jimenez, Timothy Mayen and colleagues, with an educational maia from [employer]. LEON-7 Assessment Billing LEON-7 Assessment Tool: LEON-7 Assessment 48342 Review of Systems Const All systems reviewed & are unremarkable except as noted in HPI and below Eyes Reports no additional complaints, Denies change in vision and Denies other visual disturbances Card Denies chest pain at rest, Denies chest pain with activity, Denies edema, Denies irregular heart rhythm, Denies claudication, Denies dyspnea, Denies dyspnea on exertion, Denies orthopnea, Denies paroxysmal nocturnal dyspnea and Denies slow heart rate Resp Denies cough, Denies dyspnea and Denies dyspnea on exertion Physical exam (Primary Care) Vital Signs: Last Vital Signs BP 132/70 03/26/24 13:38 BMI result Body Mass Index 31.5 Tobacco/Smoking Status: Tobacco use Status Tobacco use date assessed 03/26/24 03/26/24 13:45 Patient Tobacco Use Status Former Tobacco user 03/26/24 13:39 Tobacco use type Cigarette 03/26/24 13:39 e-Cigarette/Vaping Use Never Used 03/26/24 13:39 PHQ-9: PHQ-9 Score PHQ-9: Total score 0 03/26/24 14:01 Depression Screening Interpretation: Negative Thrive Assessment: Date of Thrive Assessment Date Thrive assessed 03/26/24 03/26/24 13:39 Currently or been in a relationship where the following occur: no concerns reported Const Orientation/consciousness: patient oriented x3 HENMT Head: Yes normal to inspection, Yes normocephalic and Yes atraumatic Ears: external ears normal Eyes General: appearance normal, both eyes and all related structures Eyelids: Yes eyelids normal Conjunctivae: conjunctivae normal Neck Neck: Yes normal visual inspection and Yes supple Resp Effort & Inspection: normal respiratory effort Auscultation: clear to auscultation bilaterally Cardio Jugular venous distension: no JVD Rate: regular rate Rhythm: regular rhythm Heart sounds: S1 normal heart sound present and S2 normal heart sound present GI Inspection: Yes normal to inspection Palpation (GI): Soft to palpation and nontender Auscultation: normal bowel sounds Skin General skin exam: no rashes or lesions noted Neuro General: patient oriented x3 and no focal motor deficits Extrem General: Yes full ROM Psych Appearance: grossly normal Assessment and Plan Assessment & Plan (1) Physical exam: Code(s): Z00.00 - Encounter for general adult medical examination without abnormal findings Plan: Repeat in a year.. (2) Mild recurrent major depression: Code(s): F33.0 - Major depressive disorder, recurrent, mild Plan: In remission. Orders: Orders Comprehensive [place]. 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
[2024-03-26 13:38] VITALS: BP 132/70; BMI 31.5
== END 2024-03-26 14:13 | disposition home or self-care (01) ==
PROVIDERS: PCP Internal Medicine; Visit Provider Internal Medicine
DX: Z00.00 Encounter for general adult medical examination without abnormal findings (principal); F33.0 Major depressive disorder, recurrent, mild; M79.605 Pain in left leg; K21.9 Gastro-esophageal reflux disease without esophagitis
CPT/HCPCS: 99396

== ENCOUNTER 2024-03-26 14:57 | Outpatient (REF) | payer OTHER, SELFPAY ==
--- NOTE | ~2024-03-26 | US_ITS ---
EXAMINATION: US VENOUS ULTRASOUND WITH DOPPLER LOWER EXTREMITY, LEFT CLINICAL INFORMATION: Pain in left leg. COMPARISON: None available. TECHNIQUE: Ultrasound of the deep veins is performed from the hip to the calf with compression sonography and color and pulse Doppler assessment. Spectral analysis with color-flow imaging is performed. FINDINGS: There is normal venous compression and respiratory variation and augmented flow. The visualized common femoral vein, superficial femoral vein, profunda femoral vein, popliteal vein, and the trifurcation region shows no evidence of deep venous thrombosis. There is no significant popliteal fossa cyst. If the patient's symptoms persist, followup ultrasound in 5 days 7 days might be of value to exclude proximal propagation from a non-visualized calf vein. US/US venous duplex LE IMPRESSION: No DVT demonstrated in the left lower extremity.
== END 2024-03-26 14:58 | disposition home or self-care (01) ==
LOC: HO.US 14:57
PROVIDERS: PCP Internal Medicine; Visit Provider Internal Medicine
DX: M79.605 Pain in left leg (principal)
CPT/HCPCS: 93971

== ENCOUNTER 2024-04-15 14:14 | Outpatient (AMB) | payer OTHER, SELFPAY ==
[2024-04-15 14:36] VITALS: BP 128/74; BMI 29.6
--- NOTE | 2024-04-15 14:36 | MHC.OFFVIS ---
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 Allergies penicillin G Allergy (Unknown, Verified 04/15/24 14:36) rash, swelling penicillin V Allergy (Unknown, Verified 04/15/24 14:36) swelling Medication List - Last Reconciled 04/15/24 by Cande Jean Baptiste CNM lisinopril 2.5 mg PO DAILY 90 days omeprazole 20 mg PO DAILY 90 days sennosides (Nadja-kylie) 17.2 mg (2 x 8.6 mg) PO BEDTIME PRN 30 days Post menopausal: Yes Do you need a note to return to daycare/school/sports/work: No HPI HPI 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 Her eldest daughter is with her today. She speaks [place] Citizen and her daughter spoke to clarify some items though she was able to understand me visit conducted in [place] Citizen She sometimes feels that she gets a small little pain in her left side that she was wondering if it was symptoms of ovulation she is 63 years old she still gets some hot flashes but they were more so years ago. She has no concerns at all about STIs she does have her but he is in [place] but she has absolutely no concerns about STIs and declines testing. She said she never ever had an abnormal Pap smear and this was explored in quite some detail questioning she has no memory of ever having a need to return for a follow-up test after Pap smear ever in her life. She thought she had a Pap smear done in 2019 in the emergency room but when I explained that no Pap smears forever done in the emergency room she realized probably what she had would cultures done and that exam was done being done because there was some bleeding but it turns out it was not from the vaginal area at all it was a urine. She has her primary care provider here and she has made contact to schedule her colonoscopy for this year but it has not been scheduled yet. [facility] Medical History (Updated 04/15/24 @ 15:28 by Cande Jean Baptiste CNM) Mild recurrent major depression Cataracts, bilateral Surgical History (Updated 04/15/24 @ 15:37 by Cande Jean Baptiste CNM) H/O: hysterectomy H/O colonoscopy H/O esophagogastroduodenoscopy History of cholecystectomy History of Family History Father Migraine Mother Alzheimer disease Diabetes Hypertension Depression Cancer Mental health disorder Social History Household Members: Children Housing: Apartment Alcohol intake: current Alcohol intake frequency: holidays/special occasions only Alcohol type: beer and other Patient Tobacco Use Status: Former Tobacco user Tobacco use type: Cigarette e-Cigarette/Vaping Use: Never Used Second Hand Smoke Exposure: No service: No Current occupational status: retired Cognitive needs: No Hearing needs: No Vision needs: Yes Female Reproductive History Menstrual Age of Menarche: 14 control method: none Total pregnancies: 3 Full term: 3 History of abnormal pap smear: No (previous pap 2019 negative,per patient) Date of Mammogram: 01/01/23 (negative) History of abnormal mammogram: No Physical Exam Vital Signs: Last Vital Signs BP 128/74 04/15/24 14:36 BMI result Body Mass Index 29.6 Const General: healthy appearing, comfortable, no acute distress, well developed and alert Nutritional Appearance: average body habitus Orientation/consciousness: patient oriented x3 Limitations: no limitations HEENT Head: Yes normocephalic Neck Neck: Yes normal visual inspection Chest Chest palpation & inspection: normal inspection of the chest Breast/axilla inspection: normal inspection of the breasts and normal inspection of the axillae Breast/axilla palpation: normal palpation of the breasts and normal palpation of the axillae Resp Effort & Inspection: normal respiratory effort GI Inspection: Yes normal to inspection, No Abdominal wall edema and No distended Palpation (GI): Soft to palpation and nontender Other: Cervix and uterus are surgically absent. Vagina is pink and moist though consistent with perimenopause. External Female Exam: normal external appearance and normal appearance of the urethra Speculum Exam - Vagina: normal appearance of the vagina and normal vaginal discharge Bimanual Exam- Adnexa, other: normal adnexae, no masses, normal and No adnexal tenderness Neuro General: patient oriented x3 Assessment & Plan Assessment & Plan (1) H/O: hysterectomy: Comment: Denies any history of any abnormal Pap smears in her life Says hysterectomy was done for 2 large fibroids in [place]. Code(s): Z90.710 - Acquired absence of both cervix and uterus Category: Surgical (2) Left sided abdominal pain: Code(s): R10.9 - Unspecified abdominal pain Category: Medical (3) Perimenopause: Code(s): N95.1 - Menopausal and female climacteric states Category: Medical Plan Patient is here with her 41-year-old daughter for her cardiac rehabilitation specialist annual exam she has not really having any concerns she had a history of a hysterectomy many many years ago for 2 large fibroids and the surgery was done in [place] she has 3 children delivered by in [place]. Her eldest daughter is with her today. She speaks [place] Citizen and her daughter spoke to clarify some items though she was able to understand me visit conducted in [place] Citizen She sometimes feels that she gets a small little pain in her left side that she was wondering if it was symptoms of ovulation she is 63 years old she still gets some hot flashes but they were more so years ago. She has no concerns at all about STIs she does have her but he is in [place] but she has absolutely no concerns about STIs and declines testing. She said she never ever had an abnormal Pap smear and this was explored in quite some detail questioning she has no memory of ever having a need to return for a follow-up test after Pap smear ever in her life. She thought she had a Pap smear done in 2019 in the emergency room but when I explained that no Pap smears forever done in the emergency room she realized probably what she had would cultures done and that exam was done being done because there was some bleeding but it turns out it was not from the vaginal area at all it was a urine. She has her primary care provider here and she has made contact to schedule her colonoscopy for this year but it has not been scheduled yet. She had a mammogram a couple of months ago Reviewed that because she has never ever had an abnormal Pap she would not need Pap smear again. She was very clear that the hysterectomy was done for benign reasons. She had no need of any testing for any kind of infection.. She has no symptoms anything abnormal either We will get a follicle stimulating hormone level to see if she is in the postmenopausal range. Discussed that if she is then it is unlikely that she would of been ovulating. Discussed other possibilities to explain changes which are random occasional left-sided she will be exploring getting her follow-up colonoscopy done as gastrointestinal could be the reason as well. I am also ordering a pelvic ultrasound to check for any pathology and we will see her after the ultrasound and labs. Orders: Orders Follicle Stimulating Hormone Today N95.1 - Menopausal and female climacteric states, R10.9 - Unspecified abdominal pain, Z90.710 - Acquired absence of both cervix and uterus US pelvic and transvaginal Today N95.1 - Menopausal and female climacteric states, R10.9 - Unspecified abdominal pain, Z90.710 - Acquired absence of both cervix and uterus Coding Level of Care Code New Pt Prev Care 40-64y([id number]) Diagnoses H/O: hysterectomy Z90.710 Left sided abdominal pain R10.9 Perimenopause N95.1
== END 2024-04-15 15:31 | disposition home or self-care (01) ==
PROVIDERS: PCP Internal Medicine; Visit Provider Advanced Practice Midwife
DX: Z01.419 Encounter for gynecological examination (general) (routine) without abnormal findings (principal); R10.9 Unspecified abdominal pain; N95.1 Menopausal and female climacteric states
CPT/HCPCS: 99386

== ENCOUNTER → 2024-04-15 14:14 | Outpatient (BNVA) | payer OTHER, SELFPAY | PROVIDERS: PCP Internal Medicine; Visit Provider Advanced Practice Midwife | DX: N95.1 Menopausal and female climacteric states (principal); R10.9 Unspecified abdominal pain; Z90.710 Acquired absence of both cervix and uterus | CPT/HCPCS: 99386 ==

== ENCOUNTER 2024-04-23 12:30 | Outpatient (REF) | payer OTHER, SELFPAY ==
--- NOTE | ~2024-04-23 | US_ITS ---
EXAMINATION: US PELVIS CLINICAL INFORMATION: Menopausal and female climacteric state. COMPARISON: None available. TECHNIQUE: Ultrasound of the pelvis is performed using both transabdominal and transvaginal transducers along with Doppler. Transvaginal imaging is performed due to inadequate visualization transabdominally. FINDINGS: Uterus: The uterus is surgically absent Adnexa: The right ovary is normal in size and echotexture, measuring 2.6 x 2.2 x 1.5 cm, volume 4.5 mL. The left ovary is not visualized. No adnexal mass or pelvic free fluid is seen. US/US pelvic and transvaginal IMPRESSION: 1. The uterus is surgically absent. 2. The left ovary is nonvisualized. 3. Otherwise, unremarkable examination.
[2024-04-24 07:38] LABS: Follicle Stimulating Hormone 49.7 mIU/mL
== END 2024-04-23 12:31 | disposition home or self-care (01) ==
LOC: HO.US 12:30
PROVIDERS: PCP Internal Medicine; Visit Provider Advanced Practice Midwife
DX: R10.9 Unspecified abdominal pain (principal); N95.1 Menopausal and female climacteric states; Z90.710 Acquired absence of both cervix and uterus
CPT/HCPCS: 36415; 76830; 76856; 83001

== ENCOUNTER 2024-05-06 09:03 | Outpatient (AMB) | payer OTHER, SELFPAY ==
--- NOTE | 2024-05-06 09:07 | A.OFFVIS_ITS ---
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 She states it is her left leg that hurts more. She sometimes get cramping and swelling but only in the left leg. 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 Complaints include pain over varicosities, swelling of lower extremities, cramping, fatigue, and heaviness of the lower extremities. In addition she does note left hip pain It has been affecting there daily activities including walking. It is noted more so in left leg. Patient denies any previous venous surgery or injections. - but does report she did get some sort of assessment in [place] Patient denies any history of DVT/ PE. Patient denies any history of phlebitis. Trial of compression includes - [id number] They now present for vascular evaluation regarding their varicose veins. [facility] Medical History Mild recurrent major depression Cataracts, bilateral Surgical History H/O: hysterectomy H/O colonoscopy H/O esophagogastroduodenoscopy History of cholecystectomy History of Family History Father Migraine Mother Alzheimer disease Diabetes Hypertension Depression Cancer Mental health disorder Social History Household Members: Children Housing: Apartment Alcohol intake: current Alcohol intake frequency: holidays/special occasions only Alcohol type: beer and other Patient Tobacco Use Status: Former Tobacco user Tobacco use type: Cigarette e-Cigarette/Vaping Use: Never Used Second Hand Smoke Exposure: No service: No Current occupational status: retired Cognitive needs: No Hearing needs: No Vision needs: Yes Female Reproductive History Menstrual Age of Menarche: 14 Review of Systems Const Reports as per HPI ENT Reports no additional complaints Card Denies chest pain, Denies chest pain at rest and Denies chest pain with activity Resp Denies chest congestion and Denies cough GI Reports no additional complaints Musc Details: pain over varicosities, aching of lower extremities, swelling, cramping, heaviness and tiredness, itching Denies abnormal gait Skin/Breast Reports pruritus and Denies wounds Neuro Reports no additional complaints and Denies abnormal gait Psych Denies no additional complaints Physical Exam Const General: cooperative, healthy appearing and comfortable Orientation/consciousness: oriented to person, oriented to place and oriented to time Neck Carotids: no bruits Chest Chest palpation & inspection: normal inspection of the chest and normal palpation of entire chest wall Resp Effort & Inspection: normal respiratory effort and able to speak in complete sentences Cardio Rate: regular rate Heart sounds: S1 normal heart sound present and S2 normal heart sound present Peripheral pulses: Peripheral pulses 2+ throughout GI Inspection: Yes normal to inspection Skin Other: +2 edema, left greater than right CEAP Classification C4 - skin color changes Ep - Etiology Primary As - superficial veins P - reflux General skin exam: dry skin Neuro General: oriented to person, oriented to place and oriented to time Extrem Right lower extremity: full ROM, normal capillary refill and edema Left lower extremity: full ROM, normal capillary refill and edema Psych Mental Status: mental status grossly normal Assessment & Plan Assessment & Plan (1) Varicose veins of left lower extremity with inflammation: Code(s): I83.12 - Varicose veins of left lower extremity with inflammation Category: Medical Plan: In short, the patient has evidence of venous insufficiency. I have discussed the pathophysiology with the patient. In addition I have provided informational material regarding venous disease to the patient. We have discussed conservative measures including compression, elevation, and exercise. I have also provided a handout regarding appropriate use of compression stockings and where to purchase good compression stockings as well. I have taken the liberty of ordering venous insufficiency testing with the patient. They will follow up with me after testing. The patient had an opportunity to ask questions regarding the treatment plan. All questions were answered. Imaging studies, laboratory studies and physical exam results were discussed and reviewed in detail. No major barriers to understanding were identified. The patient expressed understanding and agreement with the above treatment plan. The patient is aware they should contact our office by phone for worsening of the current condition or the appearance of new symptoms. Thank you for allowing me to participate in the [facility] care of this patient. If you have any questions or concerns regarding the treatment for the above condition please do not hesitate to contact me. The office telephone contact is [phone]. This note is constructed using voice recognition software. While every effort has been made to ensure accuracy, artist's manager errors may have been included. Thank you for allowing me to participate in the care of your patient. Yours sincerely, Jordan Grewal MD, FACS, R.P.V.I. Orders: Orders US venous duplex LE BI 1 Week I83.12 - Varicose veins of left lower extremity with inflammation Coding Level of Care Code New Pt Level 4 (50096) Diagnoses Varicose veins of left lower extremity with inflammation I83.12
== END 2024-05-06 09:29 | disposition home or self-care (01) ==
PROVIDERS: PCP Internal Medicine; Visit Provider Surgery Vascular Surgery
DX: I83.12 Varicose veins of left lower extremity with inflammation (principal)
CPT/HCPCS: 99203

== ENCOUNTER → 2024-05-06 09:03 | Outpatient (BNVA) | payer OTHER, SELFPAY | PROVIDERS: PCP Internal Medicine; Visit Provider Surgery Vascular Surgery | DX: I83.12 Varicose veins of left lower extremity with inflammation (principal) | CPT/HCPCS: 99202 ==

== ENCOUNTER 2024-05-13 10:05 | Outpatient (REF) | payer OTHER, SELFPAY ==
--- NOTE | ~2024-05-13 | US_ITS ---
EXAMINATION: US LOWER EXTREMITY VENOUS (REFLUX EXAM), BILATERAL CLINICAL INDICATION: Varicose veins of the left lower extremity COMPARISON: None. TECHNIQUE: Color flow triplex imaging and compression Doppler was performed to evaluate both the deep and the superficial systems bilaterally. To evaluate the superficial system, the examination was performed in the upright position. Color-flow Doppler ultrasound and compression ultrasound were utilized. In addition, maneuvers were utilized to demonstrate reflux. FINDINGS: RIGHT: 1. DEEP VENOUS ULTRASOUND OF THE RIGHT LOWER EXTREMITY: Common Femoral Vein: Compressible, normal respiratory variation and augmented flow. Popliteal Vein: Compressible, normal augmentation. Deep Venous Reflux: There is no evidence of reflux in the deep system in either the common femoral vein or the popliteal vein. There is no evidence of a Keith's cyst. 2. SUPERFICIAL ULTRASOUND WITH DOPPLER OF RIGHT LOWER EXTREMITY: RIGHT GREAT SAPHENOUS VEIN: Saphenofemoral Junction: 7 mm. No reflux. Proximal Thigh: 2 mm. No reflux. Mid Thigh: 2 mm. 256 ms reflux. Above Knee: 2 mm. No reflux. Below Knee: 1 mm. No reflux. Mid Calf: 1 mm. No reflux. Ankle: 2 mm. No reflux. DUPLICATED GREAT SAPHENOUS VEIN: Lateral: Saphenofemoral junction: 2 mm. No reflux Mid thigh: 1 mm. No reflux RIGHT SMALL SAPHENOUS VEIN: Proximal: 0.1 mm. No reflux. Distal: 1 mm. No reflux. PERFORATORS: Proximal calf great saphenous vein: 2 mm. No reflux. LEFT: 1. DEEP VENOUS ULTRASOUND OF THE LEFT LOWER EXTREMITY: Common Femoral Vein: Compressible, normal respiratory variation and augmented flow. Popliteal Vein: Compressible, normal augmentation. Deep Venous Reflux: There is no evidence of reflux in the deep system in either the common femoral vein or the popliteal vein. There is no evidence of a Keith's cyst. 2. SUPERFICIAL ULTRASOUND WITH DOPPLER OF LEFT LOWER EXTREMITY: LEFT GREAT SAPHENOUS VEIN: Saphenofemoral Junction: 1.3 mm. No reflux. Proximal Thigh: 4 mm. No reflux. Mid Thigh: 1 mm. No reflux. Above Knee: 1 mm. No reflux. Below Knee: 2 mm. No reflux. Mid Calf: 1 mm. No reflux. Ankle: 2 mm. No reflux. DUPLICATED GREAT SAPHENOUS VEIN: Lateral: Saphenofemoral junction: 3 mm. No reflux Mid thigh: 2 mm. No reflux LEFT SMALL SAPHENOUS VEIN: Proximal: 2 mm. No reflux. Distal: 1 mm. No reflux. PERFORATORS: Proximal to mid calf great saphenous vein: 1 to 2 mm. No reflux US/US venous duplex LE BI IMPRESSION: No abnormal superficial or deep venous reflux. No DVT. Abnormal lower extremity venous reflux times: Superficial and deep calf veins: >500 ms Femoropopliteal veins: >1000 ms Perforating veins: >350 ms Len N, Lg J, Priti L, Kayla AK, Jake SS, Debra Mitchell M, Sagar WH. Definition of venous reflux in lower-extremity veins.J Vasc Surg. 2003; 38:793?798.
== END 2024-05-13 10:06 | disposition home or self-care (01) ==
LOC: HO.US 10:05
PROVIDERS: PCP Internal Medicine; Visit Provider Surgery Vascular Surgery
DX: I83.12 Varicose veins of left lower extremity with inflammation (principal)
CPT/HCPCS: 93970

== ENCOUNTER 2024-05-14 15:03 | Outpatient (AMB) | payer OTHER, SELFPAY ==
[2024-05-14 15:11] VITALS: BP 110/62; BMI 29.3
--- NOTE | 2024-05-14 15:11 | MHC.OFFVIS ---
Vital Signs 05/14/24 15:11 Height 5 ft 2 in Weight 160 lb BMI 29.3 BP 110/62 Intake Visit Reasons: Ultrasound Follow up Information Interpreted: clinical only Small Business Consultant: Small Business Consultant Present Allergies penicillin G Allergy (Unknown, Verified 05/14/24 15:12) rash, swelling penicillin V Allergy (Unknown, Verified 05/14/24 15:12) swelling Is last menstrual period known: No Post menopausal: Yes HPI HPI Ultrasound Follow up: Details: Patient is here with her daughter to review the ultrasound and FSH level that she had done after the last visit she had mentioned that she occasionally had left-sided twinges that she wondered if she was still having symptoms of ovulation. She has not had any pain since and she feels fine. PFSH Medical History Mild recurrent major depression Cataracts, bilateral Surgical History H/O: hysterectomy H/O colonoscopy H/O esophagogastroduodenoscopy History of cholecystectomy History of Family History Father Migraine Mother Alzheimer disease Diabetes Hypertension Depression Cancer Mental health disorder Social History Household Members: Children Housing: Apartment Alcohol intake: current Alcohol intake frequency: holidays/special occasions only Alcohol type: beer and other Patient Tobacco Use Status: Former Tobacco user Tobacco use type: Cigarette e-Cigarette/Vaping Use: Never Used Second Hand Smoke Exposure: No service: No Current occupational status: retired Cognitive needs: No Hearing needs: No Vision needs: Yes Female Reproductive History Menstrual Age of Menarche: 14 control method: none Physical Exam Vital Signs: Last Vital Signs BP 110/62 05/14/24 15:11 BMI result Body Mass Index 29.3 Results Reviewed Results Reviewed: [address] [address] Ultrasound Report Signed Patient: Krystal Appiah MR#: [id number] : 1960 Acct:[id number] Age/Sex: 63 / F ADM Date: 04/23/24 Loc: HO. Attending Dr: Cande Jean Baptiste CNM Ordering Physician: Cande Jean Baptiste CNM Date of Service: 04/23/24 Procedure(s): US pelvic and transvaginal Accession Number(s): [id number] cc: Cande Jean Baptiste CNM; Korin Silva MD~ EXAMINATION: US PELVIS CLINICAL INFORMATION: Menopausal and female climacteric state. COMPARISON: None available. TECHNIQUE: Ultrasound of the pelvis is performed using both transabdominal and transvaginal transducers along with Doppler. Transvaginal imaging is performed due to inadequate visualization transabdominally. FINDINGS: Uterus: The uterus is surgically absent Adnexa: The right ovary is normal in size and echotexture, measuring 2.6 x 2.2 x 1.5 cm, volume 4.5 mL. The left ovary is not visualized. No adnexal mass or pelvic free fluid is seen. US/US pelvic and transvaginal IMPRESSION: 1. The uterus is surgically absent. 2. The left ovary is nonvisualized. 3. Otherwise, unremarkable examination. Dictated By: Mo Calix MD Signed By: <Electronically signed by Mo Calix MD in OV> 05/11/24 1446 DD/ 1345 TD/TT: Construction Project Assistant: CHELSIE Name: Krystal Appiah Age/Sex: 63/F : 1960 Unit#: [id number] Attend Dr: Cande Jean Baptiste CNM Re04/23/24 Status: DEP REF Location: [facility] Disch: SPEC : [id number] OVIDIO: 04/23/24 STATUS: COMP REQ : [id number] RECD: 04/23/[address]: Cande Jean Baptiste CNM COMP: 04/24/240738 ENTERED: 04/23/24-[address]: Korin Silva MD ORDERED: FSH Test Result Flag Reference FSH 49.7 mIU/mL Reference Range Follicular Phase 2.5-10.2 Mid-cycle Peak 3.1-17.7 Luteal Phase 1.5- 9.1 Postmenopausal 23.0-116.3 THIS TEST WAS PERFORMED AT: [facility] [address] [place] [id number] JEFF DURAN MD Assessment & Plan Assessment & Plan (1) Perimenopause: Code(s): N95.1 - Menopausal and female climacteric states Category: Medical (2) H/O: hysterectomy: Comment: Denies any history of any abnormal Pap smears in her life Says hysterectomy was done for 2 large fibroids in [place]. Code(s): Z90.710 - Acquired absence of both cervix and uterus Category: Medical Plan Patient is here with her daughter to review the ultrasound and FSH level that she had done after the last visit she had mentioned that she occasionally had left-sided twinges that she wondered if she was still having symptoms of ovulation. She has not had any pain since and she feels fine. I reviewed the ultrasound with her her left ovary is not visualized. She did not think that her left ovary was removed surgically but she does not really have access to records the surgery was done in [place] and she thinks she get him but she does not express inclination try and get them. The FSH shows that she is in the menopausal range, so therefore ovulation per se would be unlikely. She has an appointment tomorrow with Gastroenterology to discuss getting her screening colonoscopy and I suggest she mention any symptoms she has there so they can be explored in that arena. Pap smear was not done because she has no history of abnormal Pap smears ever and she has no cervix anymore Discussed yearly annual exams. Coding Level of Care Code Est Pt Level 3 (14821) Diagnoses Perimenopause N95.1 H/O: hysterectomy Z90.710
== END 2024-05-14 15:26 | disposition home or self-care (01) ==
LOC: HO.HWSM 15:03
PROVIDERS: PCP Internal Medicine; Visit Provider Advanced Practice Midwife
DX: N95.1 Menopausal and female climacteric states (principal); Z90.710 Acquired absence of both cervix and uterus
CPT/HCPCS: 99213

== ENCOUNTER → 2024-05-14 15:03 | Outpatient (BNVA) | payer OTHER, SELFPAY | PROVIDERS: PCP Internal Medicine; Visit Provider Advanced Practice Midwife | DX: N95.1 Menopausal and female climacteric states (principal); Z90.710 Acquired absence of both cervix and uterus | CPT/HCPCS: 99212 ==

== ENCOUNTER 2024-05-15 13:33 | Outpatient (AMB) | payer OTHER, SELFPAY ==
--- NOTE | 2024-05-15 13:40 | A.OFFVIS_ITS ---
Vital Signs 05/15/24 13:57 Height 5 ft 2 in Weight 170 lb 3.15 oz BMI 31.1 BP 137/64 Blood Pressure Location Rt brachial Position Sitting Pulse 63 Intake Visit Reasons: Colonoscopy Screening Intake Note: CC: Patient c/o LLQ abdominal pain, left leg pain and swelling, constipation, and acid reflux if she eats late. Per patient she was seen by her refuse driver and underwent vaginal and abdominal US and they could not find anything explaining the pain. Benefits Sales Consultant Required: Yes Accompanied by: Daughter Allergies penicillin G Allergy (Unknown, Verified 05/15/24 14:14) rash, swelling penicillin V Allergy (Unknown, Verified 05/15/24 14:14) swelling HPI HPI Colonoscopy Screening: Details: Assessment & Plan (1) Constipation: ?Code(s): K59.00 - Constipation, unspecified ?Plan: [place] #[id number], [place]. She continues to do well with her bid omeprazole and is moving her bowels well with the senna, colace and fiber. She continues to be satisfied with her regimen. She had a colonoscopy in 2019 with a hyperplastic polyp, but her mother had CRC so she will be due for a repeat in 2023. Rov 6 mos. (2) GERD (gastroesophageal reflux disease): ?Code(s): K21.9 - Gastro-esophageal reflux disease without esophagitis (3) Abdominal bloating: ?Comment: She discovered that pepper was the cause of her bloating after receiving the FODMAP diet - black pepper ?Code(s): R14.0 - Abdominal distension (gaseous) (4) Family history of colon cancer in mother: ?Comment: last scope 2019 repeat 2023 ?Code(s): Z80.0 - Family history of malignant neoplasm of digestive organs TODAY'S VISIT [place] #[id number] She has been having LLQ pain and she ? if it is the ovary. Onset 4-5 mos ago. Comes and goes. She saw operations vocational instructor but they did not find an ovarian cause. At times it happens when she eats, and at times it is random. She will have to lay down until it get better. She can not describe the quality of the pain but it is colicky and itis 9/10. It is better if she lays on the opposite (right) side. She has been suffering CIC despite taking Linzess 72 micro g and 2 senna a day. Her stool will be very hard with white bread or too many plantains. However her stooling is frequently small hard bowels. ROV 6 weeks. PFSH Medical History Mild recurrent major depression Cataracts, bilateral Surgical History H/O: hysterectomy H/O colonoscopy H/O esophagogastroduodenoscopy History of cholecystectomy History of Family History Father Migraine Mother Alzheimer disease Diabetes Hypertension Depression Cancer Mental health disorder Social History Household Members: Children Housing: Apartment Alcohol intake: current Alcohol intake frequency: holidays/special occasions only Alcohol type: beer and other Patient Tobacco Use Status: Former Tobacco user Tobacco use type: Cigarette e-Cigarette/Vaping Use: Never Used Second Hand Smoke Exposure: No service: No Current occupational status: retired Cognitive needs: No Hearing needs: No Vision needs: Yes Female Reproductive History Menstrual Age of Menarche: 14 Review of Systems Const Denies fatigue, Denies fever(s), Denies night sweats, Denies poor appetite and Denies weight loss Eyes Details: glasses Reports requires corrective lenses ENT Reports Normal hearing present, Denies dental pain, Denies dysphagia, Denies hearing loss, Denies mouth pain, Denies odynophagia, Denies throat swelling, Denies tongue swelling and Reports other (Dentition adequate) Card Reports no additional complaints Resp Reports no additional complaints GI Details: Reports abdominal pain, Denies melena, Denies bloating, Denies hematochezia, Reports constipation, Denies GI cramping, Denies dysphagia, Denies excessive flatus, Denies early satiety, Reports heartburn, Denies diarrhea, Denies nausea, Denies odynophagia, Denies vomiting and Denies hematemesis Musc Reports back pain Skin/Breast Denies pruritus, Denies lesions, Denies rash and Denies jaundice Neuro Reports Normal hearing present and Denies Abnormal speech present Endo Denies fatigue Aller/Immun Denies throat swelling and Denies tongue swelling Physical Exam Vital Signs: Last Vital Signs Pulse 63 05/15/24 13:57 BP 137/64 05/15/24 13:57 BMI result Body Mass Index 31.1 Const General: cooperative, no acute distress, well developed and well groomed Nutritional Appearance: well nourished and obese Orientation/consciousness: oriented to person, oriented to place and oriented to time Limitations: language barrier HEENT Head: Yes normocephalic and Yes atraumatic Eyes General: appearance normal, both eyes and all related structures Pupils: Equal, round and reactive pupils present Neck Neck: Yes normal visual inspection and Yes no lymphadenopathy Thyroid: Thyroid normal Resp Effort & Inspection: normal respiratory effort and able to speak in complete sentences Auscultation: clear to auscultation bilaterally Cardio Rate: regular rate Rhythm: regular rhythm Heart sounds: Normal, physiologic split S2 sound present Peripheral pulses: radial pulses present and posterior tibial pulses present GI Inspection: No distended, No Abdominal panniculus present and Yes obesity Palpation (GI): Soft to palpation, Tenderness to palpation present (GI) in the LLQ, no guarding, not rigid and No hepatosplenomegaly present Percussion: Yes normal to percussion Auscultation: normal bowel sounds Rectal Exam - Female: deferred Skin General skin exam: no rashes or lesions noted, turgor normal, skin not dry, no jaundice, No spider nevi and no striae Rashes: no rashes Nails: normal Neuro General: oriented to person, oriented to place and oriented to time Cranial nerves: Yes Equal, round and reactive pupils present and Yes Normal hearing present Speech: No Abnormal speech present Extrem General: Yes normal to inspection, No clubbing, No cyanosis and No edema Psych Appearance: grossly normal and well kempt Mental Status: mental status grossly normal Speech and movement: Normal speech and movement present Affect: normal affect Attitude: cooperative Thought process: Normal thought process present and not confabulating Thought content: Normal thought content present Insight: Limited insight present (Psych) Judgement: Limited judgement present (Psych) Assessment & Plan Assessment & Plan (1) GERD (gastroesophageal reflux disease): Code(s): K21.9 - Gastro-esophageal reflux disease without esophagitis Category: Medical (2) Chronic idiopathic constipation: Code(s): K59.04 - Chronic idiopathic constipation Category: Medical (3) Family history of colon cancer in mother: Comment: last scope 2019 repeat 2023 Code(s): Z80.0 - Family history of malignant neoplasm of digestive organs Category: Medical (4) Pre-op evaluation: Code(s): Z01.818 - Encounter for other preprocedural examination Category: Medical Plan [place] #[id number] She has been having LLQ pain and she ? if it is the ovary. Onset 4-5 mos ago. Comes and goes. She saw operations vocational instructor but they did not find an ovarian cause. At times it happens when she eats, and at times it is random. She will have to lay down until it get better. She can not describe the quality of the pain but it is colicky and it is 9/10. It is better if she lays on the opposite (right) side. She has been suffering CIC despite taking Linzess 72 micro g and 2 senna a day. Her stool will be very hard with white bread or too many plantains. However her stooling is frequently small hard bowels. She continues on her omeprazole 20 mg a day with good control of her GERD. ROV 6 weeks. Orders: Orders Colonoscopy - GI Use Only 05/15/24 Z01.818 - Encounter for other preprocedural examination, Z80.0 - Family history of malignant neoplasm of digestive organs Medications: New linaclotide (Linzess) 72 mcg PO QAM 30 caps 3RF K59.04 - Chronic idiopathic constipation bisacodyl (Dulcolax (bisacodyl)) 10 mg (2 x 5 mg) PO BEDTIME 4 tabs 0RF 2 days peg 3350-electrolytes 236-22.74-6.74 -5.86 gram (Golytely) until fecal effluent is clear; do not exceed a total volume of 2,000 mL 240 mL PO Q10M 4,000 mL 0RF 1 day Z12.11 - Encounter for screening for malignant neoplasm of colon Refilled sennosides (Nadja-kylie) 17.2 mg (2 x 8.6 mg) PO BEDTIME PRN 60 tabs 3RF constipation 30 days omeprazole 20 mg PO DAILY 90 caps 3RF 90 days Coding Level of Care Code Est Pt Level 3 (05032) Diagnoses GERD (gastroesophageal reflux disease) K21.9 Chronic idiopathic constipation K59.04 Family history of colon cancer in mother Z80.0 Pre-op evaluation Z01.818
[2024-05-15 13:57] VITALS: BP 137/64; PULSE 63; BMI 31.1
== END 2024-05-15 14:58 | disposition home or self-care (01) ==
PROVIDERS: PCP Internal Medicine; Visit Provider Nurse Practitioner
DX: K21.9 Gastro-esophageal reflux disease without esophagitis (principal); K59.04 Chronic idiopathic constipation; Z80.0 Family history of malignant neoplasm of digestive organs; Z01.818 Encounter for other preprocedural examination
CPT/HCPCS: 99213

== ENCOUNTER → 2024-05-15 13:33 | Outpatient (BNVA) | payer OTHER, SELFPAY | PROVIDERS: PCP Internal Medicine; Visit Provider Nurse Practitioner | DX: Z01.818 Encounter for other preprocedural examination (principal); K59.04 Chronic idiopathic constipation; K21.9 Gastro-esophageal reflux disease without esophagitis; Z80.0 Family history of malignant neoplasm of digestive organs | CPT/HCPCS: 99212 ==

== ENCOUNTER 2024-07-02 10:59 | Outpatient (AMB) | payer OTHER, SELFPAY ==
--- NOTE | 2024-07-02 11:02 | A.OFFVIS_ITS ---
Intake Visit Reasons: follow up Intake Note: Patient presents for follow up US 05/13/24. States she has pain on and off but not currently. Her left leg swells occasionally and she gets cramping as well. Allergies penicillin G Allergy (Unknown, Verified 07/02/24 11:04) rash, swelling penicillin V Allergy (Unknown, Verified 07/02/24 11:04) swelling HPI HPI follow up : Details: Very pleasant 64-year-old female presents for follow-up regarding venous disease. She reports that she has been doing fairly well. Legs have not been as uncomfortable. She has been doing relatively well with compression stockings and states that they help. She now presents for follow-up with venous insufficiency testing. [facility] Medical History Mild recurrent major depression Cataracts, bilateral Surgical History H/O: hysterectomy H/O colonoscopy H/O esophagogastroduodenoscopy History of cholecystectomy History of Family History Father Migraine Mother Alzheimer disease Diabetes Hypertension Depression Cancer Mental health disorder Social History Household Members: Children Housing: Apartment Alcohol intake: current Alcohol intake frequency: holidays/special occasions only Alcohol type: beer and other Patient Tobacco Use Status: Former Tobacco user Tobacco use type: Cigarette e-Cigarette/Vaping Use: Never Used Second Hand Smoke Exposure: No service: No Current occupational status: retired Cognitive needs: No Hearing needs: No Vision needs: Yes Female Reproductive History Menstrual Age of Menarche: 14 Review of Systems Const All systems reviewed & are unremarkable except as noted in HPI and below Reports no additional complaints ENT Reports Normal hearing present Card Denies chest pain, Denies chest pain at rest, Denies chest pain with activity and Denies pedal edema Resp Denies cough GI Denies abdominal pain Musc Denies abnormal gait, Denies muscle cramps and Denies radiating pain into limb Skin/Breast Denies skin ulcer and Denies wounds Neuro Reports Normal hearing present and Denies abnormal gait Psych Reports no additional complaints Physical Exam Const General: cooperative, healthy appearing and comfortable Orientation/consciousness: oriented to person, oriented to place and oriented to time HEENT Head: Yes normal to inspection Neck Neck: Yes normal visual inspection Carotids: no bruits Chest Chest palpation & inspection: normal inspection of the chest Resp Effort & Inspection: normal respiratory effort and able to speak in complete sentences Auscultation: clear to auscultation bilaterally, no crackles, no rales, no rhonchi and no wheezes Cardio Rate: regular rate Rhythm: regular rhythm Heart sounds: S1 normal heart sound present and S2 normal heart sound present Bruits: no carotid bruits Peripheral pulses: Peripheral pulses 2+ throughout GI Inspection: Yes normal to inspection Skin Wounds: no wounds Hair: normal Neuro General: oriented to person, oriented to place and oriented to time Cranial nerves: Yes CN's II-XII intact bilaterally and Yes Normal hearing present Cognition (Neuro): normal cognition Motor exam (neuro): 5/5 motor strength present throughout Extrem Other: venous exam: +1 edema General: No clubbing, No cyanosis and No edema Psych Appearance: grossly normal Mental Status: mental status grossly normal Speech and movement: Normal speech and movement present Results Reviewed Results Reviewed: Brief summary of venous insufficiency testing is as follows: right great saphenous vein: negative right small saphenous vein: negative right accessory vein: none present left great saphenous vein: negative left small saphenous vein: negative left accessory vein: none present Please note there is no evidence of any venous aneurysms or significant tortuosity Assessment & Plan Assessment & Plan (1) Varicose veins of left lower extremity with inflammation: Code(s): I83.12 - Varicose veins of left lower extremity with inflammation Category: Medical Plan: In short patient is negative for any significant venous insufficiency. At the current time would only recommend conservative measures including compression elevation and exercise which she appears to be doing better with. She will follow up with us on an as-needed basis. Thank you for allowing us to assist in her care. If there are any questions or concerns please do not hesitate to contact us Coding Level of Care Code Est Pt Level 4 (98450) Diagnoses Varicose veins of left lower extremity with inflammation I83.12
== END 2024-07-02 11:09 | disposition home or self-care (01) ==
PROVIDERS: PCP Internal Medicine; Visit Provider Surgery Vascular Surgery
DX: I83.12 Varicose veins of left lower extremity with inflammation (principal)
CPT/HCPCS: 99214

== ENCOUNTER → 2024-07-02 10:59 | Outpatient (BNVA) | payer OTHER, SELFPAY | PROVIDERS: PCP Internal Medicine; Visit Provider Surgery Vascular Surgery | DX: I83.12 Varicose veins of left lower extremity with inflammation (principal) | CPT/HCPCS: 99212 ==

== ENCOUNTER 2024-07-03 13:34 | Outpatient (AMB) | payer OTHER, SELFPAY ==
--- NOTE | 2024-07-03 13:42 | MHC.OFFVIS ---
Vital Signs 07/03/24 13:50 Height 5 ft 2 in Weight 167 lb 15.876 oz BMI 30.7 BP 142/61 H Blood Pressure Location Rt brachial Position Sitting Pulse 62 Intake Visit Reasons: 6 week follow up Intake Note: Krystal presents to in office visit today in follow up. CC: Patient reports that she went to the vascular doctor and he stated that everything was fine with veins in her legs. She states that Linzess has been working. Patient states that she continues to have pain from her left groin. Environmental Studies Program Director Required: No Accompanied by: Daughter Allergies penicillin G Allergy (Unknown, Verified 07/02/24 11:04) rash, swelling penicillin V Allergy (Unknown, Verified 07/02/24 11:04) swelling HPI HPI 6 week follow up: Details: Assessment & Plan (1) GERD (gastroesophageal reflux disease): Code(s): K21.9 - Gastro-esophageal reflux disease without esophagitis Category: Medical (2) Chronic idiopathic constipation: Code(s): K59.04 - Chronic idiopathic constipation Category: Medical (3) Family history of colon cancer in mother: Comment: last scope 2018 repeat 2023 Code(s): Z80.0 - Family history of malignant neoplasm of digestive organs Category: Medical (4) Pre-op evaluation: Code(s): Z01.818 - Encounter for other preprocedural examination Category: Medical Plan EQUATORIAL GUINEAN #[id number] She has been having LLQ pain and she ? if it is the ovary. Onset 4-5 mos ago. Comes and goes. She saw data warehousing architect but they did not find an ovarian cause. At times it happens when she eats, and at times it is random. She will have to lay down until it get better. She can not describe the quality of the pain but it is colicky and it is 9/10. It is better if she lays on the opposite (right) side. She has been suffering CIC despite taking 2 senna a day. Her stool will be very hard with white bread or too many plantains. However her stooling is frequently small hard bowels. She continues on her omeprazole 20 mg a day with good control of her GERD. ROV 6 weeks. Orders: Orders Colonoscopy - GI Use Only 05/15/24 Z01.818 - Encounter for other preprocedural examination, Z80.0 - Family history of malignant neoplasm of digestive organs Medications: New linaclotide (Linzess) 72 mcg PO QAM 30 caps 3RF K59.04 - Chronic idiopathic constipation bisacodyl (Dulcolax (bisacodyl)) 10 mg (2 x 5 mg) PO BEDTIME 4 tabs 0RF 2 days peg 3350-electrolytes 236-22.74-6.74 -5.86 gram (Golytely) until fecal effluent is clear; do not exceed a total volume of 2,000 mL 240 mL PO Q10M 4,000 mL 0RF 1 day Z12.11 - Encounter for screening for malignant neoplasm of colon Refilled sennosides (Nadja-kylie) 17.2 mg (2 x 8.6 mg) PO BEDTIME PRN 60 tabs 3RF constipation 30 days omeprazole 20 mg PO DAILY 90 caps 3RF 90 days COLONOSCOPY 10/22/2024 BIOPSY TODAY'S VISIT EQUATORIAL GUINEAN #[id number] She is here with a female family member supportive. She is now bowels well with the Linzess 72 micro g and senna. She is now happy with this regime. She also continues on her omeprazole 20 mg once a with good relief of her heartburn. She is aware colonoscopy and they are agreeable to keeping the appointment in [facility] 11/10 appt. [facility] Medical History Venous insufficiency Left sided abdominal pain Physical exam Left leg pain Screening for cervical cancer Pre-op evaluation Abdominal bloating Constipation Mild recurrent major depression Cataracts, bilateral Surgical History H/O: hysterectomy H/O colonoscopy H/O esophagogastroduodenoscopy History of cholecystectomy History of Family History Father Migraine Mother Alzheimer disease Diabetes Hypertension Depression Cancer Mental health disorder Social History Household Members: Children Housing: Apartment Alcohol intake: current Alcohol intake frequency: holidays/special occasions only Alcohol type: beer and other Patient Tobacco Use Status: Former Tobacco user Tobacco use type: Cigarette e-Cigarette/Vaping Use: Never Used Second Hand Smoke Exposure: No service: No Current occupational status: retired Cognitive needs: No Hearing needs: No Vision needs: Yes Female Reproductive History Menstrual Age of Menarche: 14 Review of Systems Const Denies fatigue, Denies fever(s), Denies night sweats, Denies poor appetite and Denies weight loss Eyes Details: glasses Reports requires corrective lenses ENT Reports Normal hearing present, Denies dental pain, Denies dysphagia, Denies hearing loss, Denies mouth pain, Denies odynophagia, Denies throat swelling, Denies tongue swelling and Reports other (Dentition adequate) Card Reports no additional complaints Resp Reports no additional complaints GI Details: Denies abdominal pain, Denies melena, Denies bloating, Denies hematochezia, Reports constipation, Denies GI cramping, Denies dysphagia, Denies excessive flatus, Denies early satiety, Reports heartburn, Denies diarrhea, Denies nausea, Denies odynophagia, Denies vomiting and Denies hematemesis Skin/Breast Denies pruritus, Denies lesions, Denies rash and Denies jaundice Neuro Reports Normal hearing present and Denies Abnormal speech present Endo Denies fatigue Aller/Immun Denies throat swelling and Denies tongue swelling Physical Exam Vital Signs: Last Vital Signs Pulse 62 07/03/24 13:50 BP 142/61 H 07/03/24 13:50 BMI result Body Mass Index 30.7 Const General: cooperative, no acute distress, well developed and well groomed Nutritional Appearance: well nourished and obese Orientation/consciousness: oriented to person, oriented to place and oriented to time Limitations: language barrier HEENT Head: Yes normocephalic and Yes atraumatic Eyes General: appearance normal, both eyes and all related structures Pupils: Equal, round and reactive pupils present Neck Neck: Yes normal visual inspection and Yes no lymphadenopathy Thyroid: Thyroid normal Resp Effort & Inspection: normal respiratory effort and able to speak in complete sentences Auscultation: clear to auscultation bilaterally Cardio Rate: regular rate Rhythm: regular rhythm Heart sounds: Normal, physiologic split S2 sound present Peripheral pulses: radial pulses present and posterior tibial pulses present GI Inspection: No distended, No Abdominal panniculus present and Yes obesity Palpation (GI): Soft to palpation, nontender, no guarding, not rigid and No hepatosplenomegaly present Percussion: Yes normal to percussion Auscultation: normal bowel sounds Rectal Exam - Female: deferred Skin General skin exam: no rashes or lesions noted, turgor normal, skin not dry, no jaundice, No spider nevi and no striae Rashes: no rashes Nails: normal Neuro General: oriented to person, oriented to place and oriented to time Cranial nerves: Yes Equal, round and reactive pupils present and Yes Normal hearing present Speech: No Abnormal speech present Extrem General: Yes normal to inspection, No clubbing, No cyanosis and No edema Psych Appearance: grossly normal and well kempt Mental Status: mental status grossly normal Speech and movement: Normal speech and movement present Affect: normal affect Attitude: cooperative Thought process: Normal thought process present and not confabulating Thought content: Normal thought content present Insight: Limited insight present (Psych) Judgement: Limited judgement present (Psych) Assessment & Plan Assessment & Plan (1) Chronic idiopathic constipation: Code(s): K59.04 - Chronic idiopathic constipation Category: Medical (2) GERD (gastroesophageal reflux disease): Code(s): K21.9 - Gastro-esophageal reflux disease without esophagitis Category: Medical (3) Family history of colon cancer in mother: Comment: last scope 2019 repeat 2023 Code(s): Z80.0 - Family history of malignant neoplasm of digestive organs Category: Medical Plan [facility] GUINEAN #[id number] She is here with a female family member supportive. She is now bowels well with the Linzess 72 micro g and senna. She is now happy with this regime. She also continues on her omeprazole 20 mg once a with good relief of her heartburn. She is aware colonoscopy and they are agreeable to keeping the appointment in [facility] 11/10 appt. COLONOSCOPY 10/22/2024 BIOPSY Coding Level of Care Code Est Pt Level 3 (60269) Diagnoses Chronic idiopathic constipation K59.04 GERD (gastroesophageal reflux disease) K21.9 Family history of colon cancer in mother Z80.0
[2024-07-03 13:50] VITALS: BP 142/61; PULSE 62; BMI 30.7
== END 2024-07-03 14:30 | disposition home or self-care (01) ==
PROVIDERS: PCP Internal Medicine; Visit Provider Nurse Practitioner
DX: K59.04 Chronic idiopathic constipation (principal); K21.9 Gastro-esophageal reflux disease without esophagitis; Z80.0 Family history of malignant neoplasm of digestive organs
CPT/HCPCS: 99213

== ENCOUNTER → 2024-07-03 13:34 | Outpatient (BNVA) | payer OTHER, SELFPAY | PROVIDERS: PCP Internal Medicine; Visit Provider Nurse Practitioner | DX: K59.04 Chronic idiopathic constipation (principal); K21.9 Gastro-esophageal reflux disease without esophagitis; Z80.0 Family history of malignant neoplasm of digestive organs | CPT/HCPCS: 99212 ==

== ENCOUNTER 2024-10-22 07:12 | Day surgery (SDC) | payer OTHER, SELFPAY ==
[2024-10-20 10:42] VITALS: BMI 30.5
--- NOTE | 2024-10-21 10:16 | P.CONAN_ITS ---
Documented by User: Gudelia Lewis NP 10/21/24 10:17 HPI - Anesthesia Eval Consult details Narrative: 64yo F for Colonoscopy PMFSH Active Problems Active Problems: All Active Problems Chronic idiopathic constipation (Acute) Varicose veins of left lower extremity with inflammation (Acute) Perimenopause (Acute) Spider veins (Acute) Family history of colon cancer in mother (Acute) Mild recurrent major depression (Acute) Cataracts, bilateral (Acute) Hypertension (Acute) GERD (gastroesophageal reflux disease) (Acute) Past Medical History Medical History Venous insufficiency Left sided abdominal pain Physical exam Left leg pain Screening for cervical cancer Pre-op evaluation Abdominal bloating Constipation Mild recurrent major depression Cataracts, bilateral Family History Family History Father Migraine Mother Alzheimer disease Diabetes Hypertension Depression Cancer Mental health disorder Surgical History Surgical History H/O: hysterectomy H/O colonoscopy H/O esophagogastroduodenoscopy History of cholecystectomy History of Social History Social History Household Members: Children Housing: Apartment Are you a primary transitions rn care coordinator to a significant other at home: No Do you presently have visiting nurse or other home services: No Alcohol intake: current Alcohol intake frequency: holidays/special occasions only Alcohol type: beer and other Patient Tobacco Use Status: Former Tobacco user Tobacco use type: Cigarette e-Cigarette/Vaping Use: Never Used Second Hand Smoke Exposure: No Have you been hit, kicked, punched, or otherwise hurt by someone within the past year? If so, by whom?: No Are you DNR?: No Advance Directives: No Advance Directives Information Provided: Yes Recently lost weight without trying: No Nutrition Risks: No Nutritional Risk service: No Current occupational status: retired Cognitive needs: No Hearing needs: No Vision needs: Yes Meds Allergies Allergy/AdvReac Type Severity Reaction Status Date / Time penicillin G Allergy Unknown rash, Verified 10/22/24 07:19 swelling penicillin V Allergy Unknown swelling Verified 10/22/24 07:19 Exam Height,Weight and Vital Signs: Height 5 ft 2 in Weight 75.75 kg Assessment and Plan Assessment Anesthesia Assessment: Chart Reviewed Documented by User: Gabriel Maxwell MD 10/22/24 09:51 PMFSH Past Medical History Medical History Venous insufficiency Left sided abdominal pain Physical exam Left leg pain Screening for cervical cancer Pre-op evaluation Abdominal bloating Constipation Mild recurrent major depression Cataracts, bilateral Family History Family History Father Migraine Mother Alzheimer disease Diabetes Hypertension Depression Cancer Mental health disorder Family history of problems with anesthesia: No Surgical History Surgical History H/O: hysterectomy H/O colonoscopy H/O esophagogastroduodenoscopy History of cholecystectomy History of History of Problems with Anesthesia: No Social History Social History Household Members: Children Housing: Apartment Are you a primary transitions rn care coordinator to a significant other at home: No Do you presently have visiting nurse or other home services: No Alcohol intake: current Alcohol intake frequency: holidays/special occasions only Alcohol type: beer and other Patient Tobacco Use Status: Former Tobacco user Tobacco use type: Cigarette e-Cigarette/Vaping Use: Never Used Second Hand Smoke Exposure: No Have you been hit, kicked, punched, or otherwise hurt by someone within the past year? If so, by whom?: No Are you DNR?: No Advance Directives: No Advance Directives Information Provided: Yes Recently lost weight without trying: No Nutrition Risks: No Nutritional Risk service: No Current occupational status: retired Cognitive needs: No Hearing needs: No Vision needs: Yes Meds Allergies Allergy/AdvReac Type Severity Reaction Status Date / Time penicillin G Allergy Unknown rash, Verified 10/22/24 07:19 swelling penicillin V Allergy Unknown swelling Verified 10/22/24 07:19 Exam Airway Mallampati Class: I TM Dist: <=3cm Neck ROM: Full Loose/Missing/Broken Teeth: No Heart: ok Lungs: ok Assessment and Plan Assessment Anesthesia Assessment: Anesthesia Plan Discussed Final Anesthetic Review Family History of Problems with Anesthesia: No History of Problems with Anesthesia: No NPO: Yes ASA Class: II Final Preanesthetic Review: No Changes in Pt Med Stat, Meds/Allgs Chart Reviewed, Consent Obtained/Reviewed and Anes Risks/Benef Reviewed Patient Risk: Low Procedure Risk: Low Anesthetic Plan Anesthetic Plan: MAC: and Agree w/ Assess. and Plan Disposition: Standard PACU
[2024-10-22] MEDS: Lactated Ringers 1,000 ML 100 ML IVCONT (07:26)
[2024-10-22 07:39] VITALS: BMI 31.1
--- NOTE | 2024-10-22 08:15 | MHC.SHP ---
Pre-Procedural Eval Section A - 24 Hr Update-Section A only Date of Service: 10/22/24 Section B - Complete if H&P > 30 days Chief Complaint: Family history of malignant neoplasm of digestive Relevant Family History (Specify if Yes): Yes Present Medications: see Short Stay Collaborative assessment Medical History: Significant History (Venous insufficiency Left sided abdominal pain Physical exam Left leg pain Screening for cervical cancer Pre-op evaluation Abdominal bloating Constipation Mild recurrent major depression Cataracts, bilateral) History of Previous Operations: Relevant previous surgery/procedure and date(s) ( H/O: hysterectomy H/O colonoscopy H/O esophagogastroduodenoscopy History of cholecystectomy History of ) Allergies: Allergies Allergy/AdvReac Type Severity Reaction Status Date / Time penicillin G Allergy Unknown rash, Verified 10/22/24 07:19 swelling penicillin V Allergy Unknown swelling Verified 10/22/24 07:19 Review of Systems Sugical H&P ROS: Negative: Constitution, Cardiovascular, Respiratory, Neurological, Psychiatric, Hem-Onc, Allergic/Immunologic, Gastrointestinal, Genitourinary, Musculoskeletal, Integumentary, Endocrine and Eyes/Ears/Nose/Throat Exam Surgical H&P Exam: Normal: HEENT, Normal: Heart, Normal: Lungs, Normal: Extremities, Normal: Abdomen, Normal: Skin and Normal: Neurological Plan Diagnosis/Plan: Unchanged I have reviewed the history and physical and performed a pertinent physical examination on my patient. No changes have occurred unless specified. Time Spent With Patient Time: Total time managing care of this patient today ____ minutes.
[2024-10-22 08:18] VITALS: BP 106/62; PULSE 66; RESP 18; TEMP 36.6; O2SAT 98
--- NOTE | 2024-10-22 10:01 | HO.OPN-COLON ---
Colonoscopy Operative Note Operative Note Date of Service: 10/22/24 Narrative: Operative Information Procedure Description: Colonoscopy Indication: screening Anesthesia: MAC COLONOSCOPY Instrument: Olympus variable stiffness pediatric scope 190L Colonoscopy Monitoring: Vital signs and clinical assessment, continuous EKG monitoring, Pulse oximetry, Carbon Dioxide monitoring and blood pressure monitoring were done throughout the procedure. Colon withdrawal time was 8 minutes. Procedure: The patient was placed in the left lateral decubitis position and pre-procedure medications were administered. After a digital rectal examination of the ano-rectum, the video colonoscope was inserted into the rectum and advanced through the colon to the cecum/TI. The colonoscope was slowly withdrawn in a retrograde panoramic fashion and the colon mucosa was carefully examined including a retroflexed view of the rectum. Findings and interventions are described below. Procedure Difficulty: easy Findings: Terminal Ileum-normal Cecum:normal Right sided retroflexion- normal Ascending Colon: normal Transverse Colon -normal Descending Colon:normal Sigmoid Colon: moderate severe diverticulosis with tight lumen Rectum: Retroflexion with small internal hemorrhoids seen, grade I- 5-6 mm sessile polyp removed with cold forceps mild melanosis coli Anorectum - normal Intervention: cold forceps Colon preparation: [place] Bowel Preparation Scale Right colon; 2 Transverse colon: 3 Left colon; 3 (0 = Unprepared colon segment with mucosa not seen due to solid stool that cannot be cleared. 1 = Portion of mucosa of the colon segment seen, but other areas of the colon segment not well seen due to staining, residual stool and/or opaque liquid. 2 = Minor amount of residual staining, small fragments of stool and/or opaque liquid, but mucosa of colon segment seen well. 3 = Entire mucosa of colon segment seen well with no residual staining, small fragments of stool or opaque liquid) Impression and Post Procedure Diagnosis: diverticulosis colon polyp internal hemorrhoids melanosis coli Plan: High fiber diet leaflet Avoid straining at stool, epsom salts and sitz bath, anusol supps or cream Repeat Colonoscopy in 5 years due to FH of CRC or earlier if clinically indicated Above findings were reviewed with the patient and relevant handouts were provided if indicated.
[2024-10-22 10:10] VITALS: BP 126/68; PULSE 72; RESP 18; TEMP 36.4; O2SAT 98
[2024-10-22 10:25] VITALS: BP 139/72; PULSE 50; RESP 18; TEMP 36.4; O2SAT 100
== END 2024-10-22 11:14 | disposition home or self-care (01) ==
PROVIDERS: PCP Internal Medicine; Visit Provider Internal Medicine Gastroenterology
PROC: 0DJD8ZZ Inspection of Lower Intestinal Tract, Via Natural or Artificial Opening Endoscopic (ICD-10-PCS; CPT 45378; principal; 2024-10-22 08:50)
DX: Z12.11 Encounter for screening for malignant neoplasm of colon (principal); Z80.0 Family history of malignant neoplasm of digestive organs; K62.1 Rectal polyp; K63.89 Other specified diseases of intestine; K57.30 Diverticulosis of large intestine without perforation or abscess without bleeding; K64.0 First degree hemorrhoids; K59.04 Chronic idiopathic constipation; K21.9 Gastro-esophageal reflux disease without esophagitis; I87.2 Venous insufficiency (chronic) (peripheral); F33.0 Major depressive disorder, recurrent, mild; Z79.899 Other long term (current) drug therapy; Z88.0 Allergy status to penicillin; Z90.49 Acquired absence of other specified parts of digestive tract; Z87.891 Personal history of nicotine dependence
CPT/HCPCS: 45380; 88305; J2003; J2704

== ENCOUNTER → 2024-10-22 07:12 | Outpatient (BNV) | payer OTHER, SELFPAY | PROVIDERS: PCP Internal Medicine; Visit Provider Internal Medicine Gastroenterology | DX: Z12.11 Encounter for screening for malignant neoplasm of colon (principal); K62.1 Rectal polyp; K57.30 Diverticulosis of large intestine without perforation or abscess without bleeding; K63.89 Other specified diseases of intestine | CPT/HCPCS: 45380 ==

== ENCOUNTER 2025-01-13 13:50 | Outpatient (AMB) | payer OTHER, SELFPAY ==
--- NOTE | 2025-01-13 14:01 | MHC.PC.OV ---
Vital Signs 01/13/25 14:04 Height 5 ft 2 in Weight 168 lb BMI 30.7 BP 130/70 Blood Pressure Location Lt brachial Position Sitting Intake Visit Reasons: bp Intake Note: Patient here for a follow up BP, c/o left shoulder pain, trigger finger left hand Equipment Validation Engineer Required: Yes Equipment Validation Engineer Language: Motel Keeper Name: Korin Ontiveros MD Information Interpreted: non-clinical & clinical Accompanied by: Self / Same As Patient Allergies penicillin G Allergy (Unknown, Verified 01/13/25 14:22) rash, swelling penicillin V Allergy (Unknown, Verified 01/13/25 14:22) swelling Medication List - Last Reconciled 01/13/25 by Korin Ontiveros MD linaclotide (Linzess) 72 mcg PO QAM lisinopril 2.5 mg PO DAILY 90 days omeprazole 20 mg PO DAILY 90 days sennosides (senna) 17.2 mg (2 x 8.6 mg) PO BEDTIME PRN Tobacco use date assessed: 01/13/25 Dental Screening Dental Screen Date: 01/13/25 Did you have a dental visit in the last 12 months?: Yes Did you have a dental problem in the last 6 months where you did not have access to dental care?: No Was dental information given to patient?: Patient has dentist HPI HPI Comments History of Present Illness Details The patient is a 64-year-old female presenting with a follow-up for chronic conditions and medication management. She has a longstanding history of constipation, managed with Senna and Linzess. Her gastric discomfort, likely secondary to gastroesophageal reflux disease, is managed with omeprazole. The patient is diagnosed with essential hypertension, controlled on lisinopril 2.5 mg daily, with recent blood pressure readings at 130/70 mmHg indicating good control. Her allergy to penicillin was noted, with a history of adverse reactions when exposed. One year prior, the patient underwent a colonoscopy where polyps were identified and removed, determined to be hyperplastic. She was advised a follow-up colonoscopy in ten years, conditionally based on the complexity and size of the polyps. 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 She complains of left shoulder pain that started few weeks ago with no previous trauma. Has full active range of motion. X-ray will be ordered. She will hold on on physical therapy due to recent travel that she is planning to make. [facility], [facility] Medical History (Updated 01/13/25 @ 14:31 by Korin Ontiveros MD) Venous insufficiency Left sided abdominal pain Physical exam Left leg pain Screening for cervical cancer Pre-op evaluation Abdominal bloating Constipation Mild recurrent major depression Cataracts, bilateral Surgical History H/O: hysterectomy H/O colonoscopy H/O esophagogastroduodenoscopy History of cholecystectomy History of Family History Father Migraine Mother Alzheimer disease Diabetes Hypertension Depression Cancer Mental health disorder Social History Household Members: Children Housing: Apartment Are you a primary care program director to a significant other at home: No Do you presently have visiting nurse or other home services: No Alcohol intake: current Alcohol intake frequency: holidays/special occasions only Alcohol type: beer and other Patient Tobacco Use Status: Former Tobacco user Tobacco use type: Cigarette e-Cigarette/Vaping Use: Never Used Second Hand Smoke Exposure: No service: No Current occupational status: retired Cognitive needs: No Hearing needs: No Vision needs: Yes Female Reproductive History Menstrual Age of Menarche: 14 Questionnaire PHQ-9 Over the last 2 weeks, how often have you been bothered by any of the following problems? 1. Little interest or pleasure in doing things: not at all 2. Feeling down, depressed, or hopeless: not at all 3. Trouble falling or staying asleep, or sleeping too much: not at all 4. Feeling tired or having little energy: not at all 5. Poor appetite or overeating: not at all 6. Feeling bad about yourself - or that you are a failure or have let yourself or your family down: not at all 7. Trouble concentrating on things, such as reading the newspaper or watching television: not at all 8. Moving or speaking so slowly that other people could have noticed. Or the opposite - being so fidgety or restless that you have been moving around a lot more than usual: not at all 9. Thoughts that you would be better off or of hurting yourself in some way: not at all Total score: 0 Depression Screening Interpretation: Negative Depression Screening Done: Yes 64248 - PHQ-9 Billing: Yes Source: Developed by Drs. Elfego Parra, Pratima Jimenez, Timohty Mayen and colleagues, with an educational maia from [email or web address]. Thrive Questionnaire Date Thrive assessed: 01/13/25 I am a: Patient What is your living situation today?: I have a steady place to live Within the past 12 months, did the food you bought not last and you didn't have the money to get more?: Never true Within the past 12 months, did you worry whether your food would run out before you got money to buy more?: Never true Do you have trouble paying for medicines?: No Do you have trouble getting transportation to medical appointments?: No Do you have trouble paying your heating and electricity bill?: No Do you have trouble taking care of your child, family member or friend?: No Do you have trouble with day-to-day activities such as bathing, preparing meals, shopping, managing finances, etc.?: No Are you currently unemployed and looking for a job?: No Are you interested in more education?: No Please select the resources that you would like help with: None Currently or been in a relationship where the following occur: No concerns reported THRIVE Score: 0 AUDIT C Alcohol Use Questionnaire (AUDIT-C) 1. How often do you have a drink containing alcohol?: Monthly or less 2. How many drinks containing alcohol do you have on a typical day when you are drinking?: 1 or 2 3. How often do you have six or more drinks on one occasion?: Never Total Score: 1 Score Reviewed/Action Taken: No LEON-7 AMB Questionnaire LEON-7 Date LEON - 7 assessed: 01/13/25 Feeling nervous, anxious, or on edge: 0 = Not at all Not being able to stop or control worryin = Not at all Worrying too much about different things: 0 = Not at all Trouble relaxin = Not at all Being so restless that it is hard to sit still: 0 = Not at all Becoming easily annoyed or irritable: 0 = Not at all Feeling afraid as if something awful might happen: 0 = Not at all Total LEON-7 score (0-4 normal; 5-9 mild; 10-14 moderate; 15-21 severe): 0 Source: Developed by Drs. Elfego Parra, Pratima Jimenez, Timothy Mayen and colleagues, with an educational maia from [email or web address]. LEON-7 Assessment Billing LEON-7 Assessment Tool: LEON-7 Assessment 62074 Review of Systems Const All systems reviewed & are unremarkable except as noted in HPI and below Card Denies chest pain at rest, Denies chest pain with activity, Denies edema, Denies irregular heart rhythm, Denies claudication, Denies dyspnea, Denies dyspnea on exertion, Denies orthopnea, Denies paroxysmal nocturnal dyspnea and Denies slow heart rate Resp Denies cough, Denies dyspnea and Denies dyspnea on exertion GI Denies abdominal pain, Denies change in bowel habits, Denies excessive flatus, Denies nausea and Denies vomiting Physical exam (Primary Care) Vital Signs: Last Vital Signs BP 130/70 01/13/25 14:04 BMI result Body Mass Index 30.7 BMI Assessment/Plan discussion: High BMI High, discussed plan: lifestyle, weight reduction, dietary and physical activity Tobacco/Smoking Status: Tobacco use Status Tobacco use date assessed 01/13/25 01/13/25 14:06 Patient Tobacco Use Status Former Tobacco user 01/13/25 14:06 Tobacco use type Cigarette 01/13/25 14:06 e-Cigarette/Vaping Use Never Used 01/13/25 14:06 PHQ-9: PHQ-9 Score PHQ-9: Total score 0 01/13/25 14:23 Depression Screening Interpretation: Negative Thrive Assessment: Date of Thrive Assessment Date Thrive assessed 01/13/25 01/13/25 14:06 Currently or been in a relationship where the following occur: No concerns reported Resp Effort & Inspection: normal respiratory effort Auscultation: clear to auscultation bilaterally Cardio Jugular venous distension: no JVD Rate: regular rate Rhythm: regular rhythm Heart sounds: S1 normal heart sound present and S2 normal heart sound present Extrem General: Yes full ROM Coding Level of Care Code Est Pt Level 4 (49305) Complex EM visit Add On G2211 Diagnoses Left shoulder pain M25.512 Mild recurrent major depression F33.0 Chronic idiopathic constipation K59.04 Hypertension I10 GERD (gastroesophageal reflux disease) K21.9 Additional Codes LEON-7 Assessment Billing - LEON-7 Assessment Tool: LEON-7 Assessment 49402 ([id number]) PHQ-9 - 37757 - PHQ-9 Billing: Yes ([id number]) Time Spent (min) 23 Assessment & Plan Assessment & Plan (1) Left shoulder pain: Code(s): M25.512 - Pain in left shoulder Category: Medical (2) Mild recurrent major depression: Code(s): F33.0 - Major depressive disorder, recurrent, mild Category: Medical (3) Chronic idiopathic constipation: Code(s): K59.04 - Chronic idiopathic constipation Category: Medical (4) Hypertension: Code(s): I10 - Essential (primary) hypertension Category: Medical (5) GERD (gastroesophageal reflux disease): Code(s): K21.9 - Gastro-esophageal reflux disease without esophagitis Category: Medical Plan - Continue with Senna and Linzess for chronic constipation control. - Maintain omeprazole for gastroesophageal reflux disease management. - Monitor and follow-up with laboratory evaluations in 6 months, focusing on lipid profile and glucose levels. - Referral to physical therapy for potential trigger finger assessment and management due to morning stiffness and discomfort, pending further evaluation post-patient's return from travel. - Re-evaluate need for colonoscopy based on future symptom recurrence or concerns about polyp size or characteristics. - Discuss re-engagement with mental health support if psychological symptoms develop. Patient was informed and verbally consented to the use of an ambient scribe for clinic note documentation during this visit. During the visit, I reviewed the patient's management of chronic constipation, hypertension, and gastroesophageal reflux disease, noting her adherence to medication regimens and symptom control. We deliberated on the results of her previous colonoscopy, assuring her of the benign nature of the hyperplastic polyps and explaining the rationale for the 10-year surveillance interval. 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 I proposed a conservative management approach, with supportive physiotherapy for musculoskeletal discomfort, specifically addressing her concerns about potential trigger finger. Follow-up laboratory testing was arranged to monitor metabolic targets, emphasizing the importance of lipid and glucose control in her comprehensive health management. She was also informed about re-initiating mental health services if future psychological issues arise. Orders: Orders Lipid Panel 6 Months E78.5 - Hyperlipidemia, unspecified Comprehensive [place]. Panel Fast 6 Months K59.04 - Chronic idiopathic constipation XR shoulder LT min 2V 01/13/25 M25.512 - Pain in left shoulder Referrals Counseling Referral F33.0 - Major depressive disorder, recurrent, mild Patient Instructions: - Continue all prescribed medications: lisinopril, omeprazole, Linzess, and Senna as directed. - Attend scheduled laboratory evaluations in six months. - Pursue physical therapy evaluation for hand discomfort on return from travel. - Monitor any changes in bowel habits or gastrointestinal symptoms and report if necessary. - Seek mental health support if symptoms of depression or anxiety develop. - Maintain current lifestyle and dietary habits, avoiding laxative overuse.
[2025-01-13 14:04] VITALS: BP 130/70; BMI 30.7
--- OUTSIDE RECORDS SUMMARY | 2025-01-13 15:13 | XMS_ITS | Clinical Summary ---
Author Organization [facility] Address [address] [place] [address] Care Team Providers Care Security Chief Museum Name Role Phone Elen Chilel [facility] Primary Care Provider [phone] Source Comments PLEASE NOTE, if this patient is a minor, it may be UNLAWFUL to discuss sensitive information that is contained in these records (such as FAMILY PLANNING, MENTAL HEALTH or SUBSTANCE ABUSE) with the minor patient's parent or other person without the patient's specific authorization.[facility] Allergies Active Allergy Reactions Criticality Noted Date Comments Penicillin V 07/12/2023 Medications No known medications Active Problems No known active problems Social History Tobacco Use Types Packs/Day Years Used Date Smoking Tobacco: Never Assessed Social Connections Answer Date Recorded Connectedness 0 08/21/2024 Financial Resource Strain Answer Date R ecorded Financial Resource Strain 0 2022 Stress Answer Date Recorded Stress 0 07/12/2023 Physical Activity Answer Date Recorded Physical Activity 0 07/12/2023 Food Insecurity Answer Date Recorded Food 0 08/27/2024 Transportation Needs Answer Date Record ed Transportation 0 07/12/2023 Housing Stability Answer Date Recorded Housing 0 07/12/2023 Safety and Environment Answer Date Brien rded Safety 0 07/12/2023 Utilities Answer Date Recorded Utilities 0 07/12/2023 Employment Answer Date Recorded Stress 0 08/21/2024 Comments Unknown Sex and Gender Information Value Date Recorded Sex Assigned at Not on file Legal Sex Female 10:04 AM PST Gender Identity Not on file Sexual Orientation Not on file Last Filed Vital Signs Vital Sign Reading Time Taken Comments Blood Pressure 151/86 08/21/2023 1:12 PM EDT Pulse 60 08/21/2023 1:12 PM EDT Temperature - - Respiratory Rate - - Oxygen Saturation - - Inhaled Oxygen Concentration - - Weight - - Height - - Body Mass Index - - Plan of Treatment Health Maintenance Due Date Last Done Comments Diabetes Screening 1962 HPV Screening 1962 Hepatitis C Screening 1962 Lipid Screening 1962 Pap + HPV 1962 Tobacco Screening 1962 HIV Screening 1977 Annual Preventive Care Visit 1980 Imm-DTaP/Tdap/Td (1 - Tdap) 1981 Cervical Cancer Screening 1983 Pap Smear 1983 Breast Cancer Screening (Mammogram) 2002 CT Colonography 2007 Colonoscopy 2007 Colorectal Cancer Screening 2007 FIT/gFOBT 2007 Fecal DNA 2007 Flexible Sigmoidoscopy 2007 Imm-Zoster, Recombinant (1 of 2) 2012 Dental BW 07/14/2024 07/12/2023 Dental Examination 07/14/2024 07/12/2023 Dental Perio Charting 07/14/2024 07/12/2023 Dental Prophy 07/18/2024 07/16/2023 [id number] ( season) 2024 Imm-Influenza (#1) 2024 Hypertension Screening (#1) 08/20/2024 Alcohol and Drug Screen 12/02/2024 Depression Annual Screen 12/02/2024 Dental FMX/Pano 07/14/2028 07/12/2023 Cervical Ablation/Cold-Knife Conization Discontinued Cervical Cryotherapy Discontinued Colposcopy Discontinued Endometrial Biopsy Discontinued Excision/Leep Discontinued HPV Genotyping Discontinued Vaginal Pap Discontinued Vulvoscopy Discontinued Procedures Procedure Name Priority Date/Time Associated Diagnosis Comments Full PROPHYLAXIS - ADULT Routine 023 1:00 PM EDT Chronic gingivitis, plaque induced Full INTRAORAL - COMP SERIES OF RADIOGRAPHIC IMAGES Routine 07/12/2023 10:20 AM EDT Chronic gingivitis, plaque induced Full COMP ORAL EVALUATION - NEW/ESTABLISHED PATIENT Routine 07/12/2023 10:20 AM EDT Chronic gingivitis, plaque induced from Last 3 Months or Most Recently Relevant to Health Maintenance Insurance [place] Care Teams Security Chief Museum Relationship Specialty Start Date End Date Elen Chilel FNP [address] [place] [id number] PCP - General 06/15/19
== END 2025-01-13 14:36 | disposition home or self-care (01) ==
PROVIDERS: PCP Internal Medicine; Visit Provider Internal Medicine
DX: M25.512 Pain in left shoulder (principal); F33.0 Major depressive disorder, recurrent, mild; K59.04 Chronic idiopathic constipation; I10 Essential (primary) hypertension; K21.9 Gastro-esophageal reflux disease without esophagitis

== ENCOUNTER → 2025-01-13 13:50 | Outpatient (BNVA) | payer OTHER, SELFPAY | PROVIDERS: PCP Internal Medicine; Visit Provider Internal Medicine | DX: M25.512 Pain in left shoulder (principal); F33.0 Major depressive disorder, recurrent, mild; K59.04 Chronic idiopathic constipation; K21.9 Gastro-esophageal reflux disease without esophagitis; I10 Essential (primary) hypertension | CPT/HCPCS: 96127; 99212 ==

== ENCOUNTER 2025-05-31 12:08 | Outpatient (AMB) | payer OTHER, SELFPAY ==
--- NOTE | 2025-05-31 12:08 | MHC.OFFVIS ---
Intake Visit Reasons: Rebekah Abdalla Patient Intake Note: Krystal presents as a telehealth as a second opnion. CC: Seen Rebekah Abdalla and now March is stumped with what to do moving forward. Allergies penicillin G Allergy (Unknown, Verified 05/31/25 12:08) rash, swelling penicillin V Allergy (Unknown, Verified 05/31/25 12:08) swelling HPI HPI Rebekah Abdalla Patient: Details: 65 yr old f being called for c/o constipation she has been having issues with constipation, alternated with senna one day and linaclotide the other day she can have left lower abdominal pain no n/v she has gerd, helped by PPI Colonoscopy 10/25 Impression and Post Procedure Diagnosis: diverticulosis colon polyp internal hemorrhoids melanosis coli PAth: hyperplastic polyp A/P: 1/ Constipation, and LLQ discomfort, 2/2 tight diverticulosis PLAN: 1/ cut down on senna, increase lianclotide 2/ advised on high fiber diet and sent metamucil [facility] Medical History Venous insufficiency Left sided abdominal pain Physical exam Left leg pain Screening for cervical cancer Pre-op evaluation Abdominal bloating Constipation Mild recurrent major depression Cataracts, bilateral Surgical History H/O: hysterectomy H/O colonoscopy H/O esophagogastroduodenoscopy History of cholecystectomy History of Family History Father Migraine Mother Alzheimer disease Diabetes Hypertension Depression Cancer Mental health disorder Social History Household Members: Children Housing: Apartment Are you a primary career services manager to a significant other at home: No Do you presently have visiting nurse or other home services: No Alcohol intake: current Alcohol intake frequency: holidays/special occasions only Alcohol type: beer and other Patient Tobacco Use Status: Former Tobacco user Tobacco use type: Cigarette e-Cigarette/Vaping Use: Never Used Second Hand Smoke Exposure: No service: No Current occupational status: retired Cognitive needs: No Hearing needs: No Vision needs: Yes Female Reproductive History Menstrual Age of Menarche: 14 Telehealth Telehealth Telehealth Platform: Telephone Location of provider rendering services: practice address Location of patient: address on file Patient Identification confirmed using: Name, : Yes Telehealth method: voice only Patient verbally consented to treatment: Yes Patient verbally consented to billing insurance company: Yes Patient informed of any privacy concerns related to visit: Yes Minutes spent on Phone/Video with Pt.: 8 Assessment & Plan Assessment & Plan (1) Chronic idiopathic constipation: Code(s): K59.04 - Chronic idiopathic constipation Category: Medical Plan: as above Medications: New psyllium husk (with sugar) 3 gram/7 gram (Metamucil (with sugar)) 1 tbsp PO DAILY 822 grams 3RF linaclotide 145 mcg PO DAILY 30 caps 2RF Discontinued linaclotide (Linzess) Discontinued Reason: Doctor's Order 72 mcg PO QAM 30 caps 3RF K59.04 - Chronic idiopathic constipation Coding Level of Care Code Est Pt Level 3 (33269) Diagnoses Chronic idiopathic constipation K59.04
--- OUTSIDE RECORDS SUMMARY | 2025-05-31 12:46 | XMS_ITS | Clinical Summary ---
Author Organization [facility] Address [address] [place] [address] Care Team Providers Care Urology Physician Assistant Name Role Phone Elen Chilel [facility] Primary Care Provider [phone] Source Comments PLEASE NOTE, if this patient [...] Health Maintenance Due Date Last Done Comments Anxiety Screening 1962 Diabetes Screening 1962 HPV Screening 1962 Hepatitis C Screening 1962 Lipid Screening 1962 Pap + HPV 1962 Tobacco Screening 1962 HIV Screening 1977 Imm-DTaP/Tdap/Td (1 - Tdap) 1981 Cervical Cancer Screening 1983 Pap Smear 1983 Breast Cancer Screening (Mammogram) 2002 CT Colonography 2007 Colonoscopy 2007 Colorectal Cancer Screening 2007 FIT/gFOBT 2007 Fecal DNA 2007 Flexible Sigmoidoscopy 2007 Imm-Pneumococcal 50+ (1 of 1 - PCV) 2012 Imm-Zoster, Recombinant (1 of 2) 2012 Dental BW 07/14/2024 07/12/2023 Dental Examination 07/14/2024 07/12/2023 Dental Perio Charting 07/14/2024 07/12/2023 Dental Prophy 07/18/2024 07/16/2023 [id number] ( - season) 2024 Hypertension Screening (#1) 08/20/2024 Alcohol and Drug Screen 12/02/2024 Depression Annual Screen 12/02/2024 Imm-Influenza (Season Ended) 2025 Dental FMX/Pano 07/14/2028 07/12/2023 Cervical Ablation/Cold-Knife Conization [...] Most Recently Relevant to Health Maintenance [place] Care Teams Urology Physician Assistant Relationship Specialty Start Date End Date Elen Chilel FNP [address] [place] [id number] PCP - General 06/15/19
== END 2025-05-31 15:05 | disposition home or self-care (01) ==
LOC: HO.HGI 12:08
PROVIDERS: PCP Internal Medicine; Visit Provider Internal Medicine Gastroenterology
DX: K59.04 Chronic idiopathic constipation (principal)
CPT/HCPCS: 99213

== ENCOUNTER → 2025-05-31 12:08 | Outpatient (BNVA) | payer OTHER, SELFPAY | PROVIDERS: PCP Internal Medicine; Visit Provider Internal Medicine Gastroenterology | DX: K59.04 Chronic idiopathic constipation (principal) | CPT/HCPCS: 99212 ==

== ENCOUNTER 2025-07-15 09:35 | Outpatient (REF) | payer OTHER, SELFPAY ==
[2025-07-15 11:03] LABS: Alanine Aminotransferase 39 U/L (0-31); Albumin Level 4.5 g/dL (3.5-5.0); Alkaline Phosphatase 66 U/L (39-117); Anion Gap 12 (12-20); Aspartate Amino Transferase 32 U/L (5-31); Blood Urea Nitrogen 11 mg/dL (9-16); Calcium 9.5 mg/dL (8.4-10.2); Carbon Dioxide 30 mmol/L (22-29); Chloride 105 mmol/L (96-108); Cholesterol 212 mg/dL (<200); Estimated Glomerular Filt Rate > 60; HDL Cholesterol 41 mg/dL (>40); Potassium 4.5 mmol/L (3.3-5.1); Sodium 142 mmol/L (135-145); Total Protein 7.4 g/dL (6.5-8.0); Triglycerides 245 mg/dL (<150)
== END 2025-07-15 09:36 | disposition home or self-care (01) ==
LOC: HO.LAB 09:35
PROVIDERS: PCP Internal Medicine; Visit Provider Internal Medicine
DX: Z00.00 Encounter for general adult medical examination without abnormal findings (principal); Z23 Encounter for immunization; E78.5 Hyperlipidemia, unspecified; Z78.0 Asymptomatic menopausal state
CPT/HCPCS: 36415; 80053; 80061; 90471; 90715; 96127; 99396

== ENCOUNTER 2025-07-15 09:35 | Outpatient (AMB) | payer OTHER, SELFPAY ==
[2025-07-15 09:43] VITALS: BP 134/66; PULSE 63; RESP 18; O2SAT 96; BMI 30.6
--- NOTE | 2025-07-15 09:43 | MHC.PC.OV ---
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: No Accompanied by: Self / Same As Patient Allergies penicillin G Allergy (Unknown, Verified 07/15/25 09:51) rash, swelling penicillin V Allergy (Unknown, Verified 07/15/25 09:51) swelling Medication List - Last Reconciled 07/15/25 by Korin Ontiveros MD linaclotide 145 mcg PO DAILY lisinopril 2.5 mg PO DAILY 90 days omeprazole 20 mg PO DAILY 90 days psyllium husk (with sugar) 3 gram/7 gram (Metamucil (with sugar)) 1 tbsp PO DAILY sennosides (senna) 17.2 mg (2 x 8.6 mg) PO BEDTIME PRN Tobacco use date assessed: 07/15/25 Dental Screening Dental Screen Date: 07/15/25 Did you have a dental visit in the last 12 months?: No Did you have a dental problem in the last 6 months where you did not have access to dental care?: No Was dental information given to patient?: Patient has dentist HPI HPI Comments History of Present Illness Details The patient is a 65-year-old female presenting for an annual physical examination. She has not undergone mammography in over two years and has not had a bone density screening. Her last tetanus vaccination was over ten years ago, and she will be receiving it today. The patient underwent a colonoscopy last year, which revealed a hyperplastic polyp. She has a family history of Alzheimer's disease and cancer, with her mother having had both conditions. Socially, she is a former smoker and consumes alcohol occasionally, such as trying mojitos. [facility] Medical History (Updated 07/15/25 @ 10:02 by Korin Ontiveros MD) Physical exam Venous insufficiency Left sided abdominal pain Left leg pain Screening for cervical cancer Pre-op evaluation Abdominal bloating Constipation Mild recurrent major depression Cataracts, bilateral Surgical History H/O: hysterectomy H/O colonoscopy H/O esophagogastroduodenoscopy History of cholecystectomy History of Family History Father Migraine Mother Alzheimer disease Diabetes Hypertension Depression Cancer Mental health disorder Social History Household Members: Children Housing: Apartment Are you a primary healthcare administration intern to a significant other at home: No Do you presently have visiting nurse or other home services: No Alcohol intake: current Alcohol intake frequency: holidays/special occasions only Alcohol type: beer and other Patient Tobacco Use Status: Former Tobacco user Tobacco use type: Cigarette e-Cigarette/Vaping Use: Never Used Second Hand Smoke Exposure: No service: No Current occupational status: retired Cognitive needs: No Hearing needs: No Vision needs: Yes Female Reproductive History Menstrual Age of Menarche: 14 Questionnaire PHQ-9 Over the last 2 weeks, how often have you been bothered by any of the following problems? 1. Little interest or pleasure in doing things: not at all 2. Feeling down, depressed, or hopeless: not at all 3. Trouble falling or staying asleep, or sleeping too much: not at all 4. Feeling tired or having little energy: not at all 5. Poor appetite or overeating: not at all 6. Feeling bad about yourself - or that you are a failure or have let yourself or your family down: not at all 7. Trouble concentrating on things, such as reading the newspaper or watching television: not at all 8. Moving or speaking so slowly that other people could have noticed. Or the opposite - being so fidgety or restless that you have been moving around a lot more than usual: not at all 9. Thoughts that you would be better off or of hurting yourself in some way: not at all Total score: 0 Depression Screening Interpretation: Negative Depression Screening Done: Yes 90871 - PHQ-9 Billing: Yes Source: Developed by Drs. Elfego Parra, Pratima Jimenez, Timothy Mayen and colleagues, with an educational maia from [employer]. Thrive Questionnaire Date Thrive assessed: 07/15/25 I am a: Parent/Caregiver What is your living situation today?: I choose not to answer this question Within the past 12 months, did the food you bought not last and you didn't have the money to get more?: I choose not to answer this question Within the past 12 months, did you worry whether your food would run out before you got money to buy more?: I choose not to answer this question Do you have trouble paying for medicines?: I choose not to answer this question Do you have trouble getting transportation to medical appointments?: I choose not to answer this question Do you have trouble paying your heating and electricity bill?: I choose not to answer this question Do you have trouble taking care of your child, family member or friend?: I choose not to answer this question Do you have trouble with day-to-day activities such as bathing, preparing meals, shopping, managing finances, etc.?: I choose not to answer this question Are you currently unemployed and looking for a job?: I choose not to answer this question Are you interested in more education?: I choose not to answer this question Please select the resources that you would like help with: None Currently or been in a relationship where the following occur: No concerns reported THRIVE Score: 0 AUDIT C Alcohol Use Questionnaire (AUDIT-C) 1. How often do you have a drink containing alcohol?: Never Total Score: 0 Score Reviewed/Action Taken: No LEON-7 AMB Questionnaire LEON-7 Date LEON - 7 assessed: 07/15/25 Feeling nervous, anxious, or on edge: 0 = Not at all Not being able to stop or control worryin = Not at all Worrying too much about different things: 0 = Not at all Trouble relaxin = Not at all Being so restless that it is hard to sit still: 0 = Not at all Becoming easily annoyed or irritable: 0 = Not at all Feeling afraid as if something awful might happen: 0 = Not at all Total LEON-7 score (0-4 normal; 5-9 mild; 10-14 moderate; 15-21 severe): 0 Source: Developed by Drs. Elfego Parra, Pratima Jimenez, Timothy Mayen and colleagues, with an educational maia from [employer]. LEON-7 Assessment Billing LEON-7 Assessment Tool: LEON-7 Assessment 85300 Review of Systems Const All systems reviewed & are unremarkable except as noted in HPI and below Card Denies chest pain at rest, Denies chest pain with activity, Denies edema, Denies irregular heart rhythm, Denies claudication, Denies orthopnea, Denies paroxysmal nocturnal dyspnea and Denies slow heart rate Physical exam (Primary Care) Vital Signs: Last Vital Signs Pulse 63 07/15/25 09:43 Resp 18 07/15/25 09:43 BP 134/66 07/15/25 09:43 Pulse Ox 96 07/15/25 09:43 Oxygen Delivery Method Room Air 07/15/25 09:43 BMI result Body Mass Index 30.6 Tobacco/Smoking Status: Tobacco use Status Tobacco use date assessed 07/15/25 07/15/25 09:49 Patient Tobacco Use Status Former Tobacco user 07/15/25 09:49 Tobacco use type Cigarette 07/15/25 09:49 e-Cigarette/Vaping Use Never Used 07/15/25 09:49 PHQ-9: PHQ-9 Score PHQ-9: Total score 0 07/15/25 10:09 Depression Screening Interpretation: Negative Thrive Assessment: Date of Thrive Assessment Date Thrive assessed 07/15/25 07/15/25 09:49 Currently or been in a relationship where the following occur: No concerns reported HENMT Head: Yes normal to inspection, Yes normocephalic and Yes atraumatic Ears: external ears normal Eyes General: appearance normal, both eyes and all related structures Eyelids: Yes eyelids normal Conjunctivae: conjunctivae normal Neck Neck: Yes normal visual inspection and Yes supple Resp Effort & Inspection: normal respiratory effort Auscultation: clear to auscultation bilaterally Cardio Jugular venous distension: no JVD Rate: regular rate Rhythm: regular rhythm Heart sounds: S1 normal heart sound present and S2 normal heart sound present GI Inspection: Yes normal to inspection Palpation (GI): Soft to palpation and nontender Auscultation: normal bowel sounds Skin General skin exam: no rashes or lesions noted Neuro General: no focal motor deficits Extrem General: Yes full ROM Psych Appearance: grossly normal Immunizations Boostrix Tdap 2.5 Lf unit-8 mcg-5 Lf/0.5 mL intramuscular syringe Performing Provider: Korin Ontiveros MD Performing Location: [facility] Administered by: Lyudmila Renteria LPN on 07/15/25 10:08 Dose Route Admin Location Dispensed Lot Number Expiration Date 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 Eligible 07/15/25 Private Coding Level of Care Code Est Pt Prev Care 40-64y(75812) Diagnoses Physical exam Z00.00 Additional Codes LEON-7 Assessment Billing - LEON-7 Assessment Tool: LEON-7 Assessment 27864 ([id number]) PHQ-9 - 16491 - PHQ-9 Billing: Yes ([id number]) Time Spent (min) 30 Assessment & Plan Assessment & Plan (1) Physical exam: Code(s): Z00.00 - Encounter for general adult medical examination without abnormal findings Category: Medical Plan The patient will be scheduled for a mammography and bone density screening to address the overdue preventative care measures. She will also receive a tetanus vaccination today, given that her last dose was over ten years ago. Laboratory tests will be conducted to evaluate cholesterol, glucose, renal and liver function, triglycerides, and electrolytes. Patient was informed and verbally consented to the use of an ambient scribe for clinic note documentation during this visit. Orders: Orders XR DEXA axial skeleton Today Z78.0 - Asymptomatic menopausal state Comprehensive [place]. Panel Fast Today Z00.00 - Encounter for general adult medical examination without abnormal findings MM tomosynthesis screening BI Today Z12.31 - Encounter for screening mammogram for malignant neoplasm of breast Lipid Panel Today Z00.00 - Encounter for general adult medical examination without abnormal findings TDaP Immunization Today Z23 - Encounter for immunization
--- OUTSIDE RECORDS SUMMARY | 2025-07-15 10:17 | XMS_ITS | Clinical Summary ---
Author Organization [facility] Address [address] [place] [address] Care Team Providers Care Forming Machine Tender Name Role Phone Elen Chilel [facility] Primary Care Provider [phone] Source Comments PLEASE NOTE, if this patient [...] Charting 07/14/2024 07/12/2023 Dental Prophy 07/18/2024 07/16/2023 [id number] ( - season) 2024 Hypertension Screening (#1) 08/20/2024 Alcohol and Drug Screen 12/02/2024 Depression Annual Screen 12/02/2024 Imm-Influenza (#1) 2025 Dental FMX/Pano 07/14/2028 07/12/2023 Cervical Ablation/Cold-Knife [...] Most Recently Relevant to Health [place] Care Teams Forming Machine Tender Relationship Specialty Start Date End Date Elen Chilel FNP [address] [place] [id number] PCP - General 06/15/19
== END 2025-07-15 10:11 | disposition home or self-care (01) ==
LOC: HO.HMCH 09:37
PROVIDERS: PCP Internal Medicine; Visit Provider Internal Medicine
DX: Z23 Encounter for immunization (principal); Z00.00 Encounter for general adult medical examination without abnormal findings

== ENCOUNTER 2025-08-25 10:27 | Outpatient (AMB) | payer OTHER, SELFPAY ==
[2025-08-25 10:54] VITALS: BP 134/62; PULSE 68; RESP 18; TEMP 36.3; O2SAT 97; BMI 31.4
--- NOTE | 2025-08-25 10:54 | A.OFFPC_ITS ---
Vital Signs 08/25/25 10:54 Height 5 ft 2 in Weight 171 lb 8 oz BMI 31.4 BP 134/62 Blood Pressure Location Rt brachial Position Sitting Respiration 18 Pulse 68 Pulse Source Pulse Oximeter Temp 97.3 F Temp Source Temporal Artery Scan Pulse Oximetry (%) 97 Oxygen Delivery Method Room Air Intake Visit Reasons: Tachycardia Trade Union Secretary Required: Yes Trade Union Secretary Language: Eritrean Accompanied by: Self / Same As Patient Allergies penicillin G Allergy (Unknown, Verified 08/25/25 10:54) rash, swelling penicillin V Allergy (Unknown, Verified 08/25/25 10:54) swelling Tobacco use date assessed: 08/25/25 Dental Screening Dental Screen Date: 08/25/25 Did you have a dental visit in the last 12 months?: No Did you have a dental problem in the last 6 months where you did not have access to dental care?: No Was dental information given to patient?: Patient has dentist HPI HPI Comments History of Present Illness Details The patient is a 65-year-old female presenting with tachycardia and palpitations. She reports experiencing tachycardia for the past week, with daily episodes characterized by palpitations. She reports taking deep braths and laying down helps improve the symptoms. There is no associated chest pain, and the episodes occur randomly without identifiable triggers. She denies chest pain, lightheadedness, change in her bowels or any other comorbidities. [facility] Medical History Physical exam Venous insufficiency Left sided abdominal pain Left leg pain Screening for cervical cancer Pre-op evaluation Abdominal bloating Constipation Mild recurrent major depression Cataracts, bilateral Surgical History H/O: hysterectomy H/O colonoscopy H/O esophagogastroduodenoscopy History of cholecystectomy History of Family History Father Migraine Mother Alzheimer disease Diabetes Hypertension Depression Cancer Mental health disorder Social History Household Members: Children Housing: Apartment Are you a primary career specialist to a significant other at home: No Do you presently have visiting nurse or other home services: No Alcohol intake: current Alcohol intake frequency: holidays/special occasions only Alcohol type: beer and other Patient Tobacco Use Status: Former Tobacco user Tobacco use type: Cigarette e-Cigarette/Vaping Use: Never Used Second Hand Smoke Exposure: No service: No Current occupational status: retired Cognitive needs: No Hearing needs: No Vision needs: Yes Female Reproductive History Menstrual Age of Menarche: 14 Questionnaire Thrive Questionnaire Date Thrive assessed: 07/08/25 I am a: Parent/Caregiver What is your living situation today?: I choose not to answer this question Within the past 12 months, did the food you bought not last and you didn't have the money to get more?: I choose not to answer this question Within the past 12 months, did you worry whether your food would run out before you got money to buy more?: I choose not to answer this question Do you have trouble paying for medicines?: I choose not to answer this question Do you have trouble getting transportation to medical appointments?: I choose not to answer this question Do you have trouble paying your heating and electricity bill?: I choose not to answer this question Do you have trouble taking care of your child, family member or friend?: I choose not to answer this question Do you have trouble with day-to-day activities such as bathing, preparing meals, shopping, managing finances, etc.?: I choose not to answer this question Are you currently unemployed and looking for a job?: I choose not to answer this question Are you interested in more education?: I choose not to answer this question Please select the resources that you would like help with: None Currently or been in a relationship where the following occur: No concerns reported THRIVE Score: 0 LEON-7 AMB Questionnaire LEON-7 Date LEON - 7 assessed: 07/15/25 Source: Developed by Drs. Elfego Parra, Pratima Jimenez, Timothy Mayen and colleagues, with an educational maia from [employer] Review of Systems Const Details: Positives besides what was mentioned in HPI are in BOLD Constitutional: No Weight Change, No Fever, No Chills, No Night Sweats, No Fatigue, No Malaise ENT/Mouth: No Hearing Changes, No Ear Pain, No Nasal Congestion, No Sinus Pain, No Hoarseness, No sore throat, No Rhinorrhea, No Swallowing Difficulty Eyes: No Eye Pain, No Swelling, No Redness, No Foreign Body, No Discharge, No Vision Changes Cardiovascular: No Chest Pain, No SOB, No PND, No Dyspnea on Exertion, No Orthopnea, No Claudication, No Edema, No Palpitations Respiratory: No Cough, No Sputum, No Wheezing, No Smoke Exposure, No Dyspnea Gastrointestinal: No Nausea, No Vomiting, No Diarrhea, No Constipation, No Pain, No Heartburn, No Anorexia, No Dysphagia, No Hematochezia, No Melena, No Flatulence, No Jaundice Genitourinary: No Dysmenorrhea, No DUB, No Dyspareunia, No Dysuria, No Urinary Frequency, No Hematuria, No Urinary Incontinence, No Urgency, No Flank Pain, No Urinary Flow Changes, No Hesitancy Musculoskeletal: No Arthralgias, No Myalgias, No Joint Swelling, No Joint Stiffness, No Back Pain, No Neck Pain, No Injury History Skin: No Skin Lesions, No Pruritis, No Hair Changes, No Breast/Skin Changes, No Nipple Discharge Neuro: No Weakness, No Numbness, No Paresthesias, No Loss of Consciousness, No Syncope, No Dizziness, No Headache, No Coordination Changes, No Recent Falls Psych: No Anxiety/Panic, No Depression, No Insomnia, No Personality Changes, No Delusions, No Rumination, No SI/HI/AH/VH, No Social Issues, No Memory Changes, No Violence/Abuse Hx., No Eating Concerns Heme/Lymph: No Bruising, No Bleeding, No Transfusions History, No Lymphadenopathy Endocrine: No Polyuria, No Polydipsia, No Temperature Intolerance Physical exam (Primary Care) Vital Signs: Last Vital Signs Temp 97.3 F 08/25/25 10:54 Pulse 68 08/25/25 10:54 Resp 18 08/25/25 10:54 BP 134/62 08/25/25 10:54 Pulse Ox 97 08/25/25 10:54 Oxygen Delivery Method Room Air 08/25/25 10:54 BMI result Body Mass Index 31.4 Tobacco/Smoking Status: Tobacco use Status Tobacco use date assessed 08/25/25 08/25/25 10:59 Patient Tobacco Use Status Former Tobacco user 08/25/25 10:59 Tobacco use type Cigarette 08/25/25 10:59 e-Cigarette/Vaping Use Never Used 08/25/25 10:59 Thrive Assessment: Date of Thrive Assessment Date Thrive assessed 07/08/25 08/25/25 10:59 Currently or been in a relationship where the following occur: No concerns reported Const Other: Pertinent findings are in BOLD GENERAL APPEARANCE NAD, activity normal for age, well developed/ well nourished, no cyanosis, pallor, or diaphoresis. EYES lids/conjunctiva normal. EARS/NOSE/THROAT Mucous membranes moist, nares normal, lips/teeth normal uvula midline without oral pharyngeal erythema, exudate or swelling TMs normal bilaterally. No lymphangitis/lymphedema. HEAD/NECK normocephalic atraumatic, no facial trauma, neck is supple. RESPIRATORY respiratory effort normal, speaks in full sentences, no tripod position, no accessory muscle use. Lungs clear to auscultation without rhonchi, wheezes, rales CARDIAC Regular rate and rhythm, no edema. ABDOMINAL Soft, ND/NT. No evidence of fluid wave. No pulsatile masses on exam, rebound tenderness, Daley sign or pain over Mcburney's point. MUSCLES/EXTREMITIES No abnormal range of motion, no swelling. SKIN Warm, pink and dry. No rashes, dermatoses, petechiae or lesions. NEUROLOGICAL Speech is clear and appropriate. Normal level of consciousness. Gait and coordination are normal. 5/5 strength in all extremities. PSYCH Normal mood and affect. Judgement/competence is appropriate Coding Level of Care Code Est Pt Level 3 (34008) Diagnoses Palpitations R00.2 Time Spent (min) 20 Assessment & Plan Assessment & Plan (1) Palpitations: Code(s): R00.2 - Palpitations Category: Medical Plan: 7 days holter monitor. 3 weeks F-U to assess results. Plan I discussed with the patient the plan to use a 7-day Holter monitor to evaluate her tachycardia. I explained that she would be contacted to picking table worker the device and provided instructions on its use. We agreed on a follow-up in three weeks to review the results and decide on further management.
== END 2025-08-25 11:29 | disposition home or self-care (01) ==
LOC: HO.HMCH 10:28
PROVIDERS: PCP Internal Medicine; Visit Provider Internal Medicine
DX: R00.2 Palpitations (principal)

== ENCOUNTER → 2025-08-25 10:27 | Outpatient (BNVA) | payer OTHER, SELFPAY | PROVIDERS: PCP Internal Medicine; Visit Provider Internal Medicine | DX: R00.2 Palpitations (principal) | CPT/HCPCS: 99212 ==

== ENCOUNTER 2025-08-31 10:14 | Outpatient (REF) | payer OTHER, SELFPAY ==
[2025-08-31 17:10] LABS: Alanine Aminotransferase 43 U/L (0-31); Albumin Level 4.4 g/dL (3.5-5.0); Alkaline Phosphatase 65 U/L (39-117); Anion Gap 9 (12-20); Aspartate Amino Transferase 27 U/L (5-31); Blood Urea Nitrogen 10 mg/dL (9-16); Calcium 9.2 mg/dL (8.4-10.2); Carbon Dioxide 30 mmol/L (22-29); Chloride 107 mmol/L (96-108); Estimated Glomerular Filt Rate > 60; Magnesium 2.2 mg/dL (1.6-2.6); Potassium 3.8 mmol/L (3.3-5.1); Sodium 142 mmol/L (135-145); Total Protein 7.2 g/dL (6.5-8.0)
== END 2025-08-31 10:15 | disposition home or self-care (01) ==
LOC: HO.HMGCLDS 10:14
PROVIDERS: PCP Internal Medicine; Referring Provider Physician Assistant; Visit Provider Advanced Practice Midwife
DX: Z01.419 Encounter for gynecological examination (general) (routine) without abnormal findings (principal); N95.1 Menopausal and female climacteric states; R00.2 Palpitations
CPT/HCPCS: 36415; 80053; 83735; 84443; 99212; 99396

== ENCOUNTER 2025-08-31 10:14 | Outpatient (AMB) | payer OTHER, SELFPAY ==
--- NOTE | 2025-08-31 10:13 | A.OFFVIS_ITS ---
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: Plant Engineer Present (Dillan) Accompanied by: Self / Same As Patient Allergies penicillin G Allergy (Unknown, Verified 08/25/25 10:54) rash, swelling penicillin V Allergy (Unknown, Verified 08/25/25 10:54) swelling Medication List - Last Reconciled 08/31/25 by Cande Jean Baptiste CNM linaclotide 145 mcg PO DAILY lisinopril 2.5 mg PO DAILY 90 days omeprazole 20 mg PO DAILY 90 days psyllium husk (with sugar) 3 gram/7 gram (Metamucil (with sugar)) 1 tbsp PO DAILY sennosides (senna) 17.2 mg (2 x 8.6 mg) PO BEDTIME PRN Is last menstrual period known: No Post menopausal: Yes Patient : No HPI 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 Her only health concern currently is that she has been experiencing tachycardia and she did see someone in her primary care provider's office last week and they ordered a Holter monitor but there was some challenges with the ordering and she isn't sure when that is going to happen and she is concerned about it she was told if she continues to have symptoms she might need to go to urgent or ER care she often feels a little out of breath. Her daughter is advocating for her. She has not having any tours captain concerns whatsoever it was established that she never had an abnormal Pap smear in the past and she had a hysterectomy for noncancerous reasons (fibroids), and she had an ultrasound last year which showed 1 ovary though the other 1 could not be seen she is postmenopausal. She otherwise maintains herself in good health with healthy habits. [facility] Medical History (Updated 08/31/25 @ 11:09 by Cande Jean Baptiste CNM) Screening for cervical cancer Physical exam Venous insufficiency Left sided abdominal pain Left leg pain Pre-op evaluation Abdominal bloating Constipation Mild recurrent major depression Cataracts, bilateral Surgical History H/O: hysterectomy H/O colonoscopy H/O esophagogastroduodenoscopy History of cholecystectomy History of Family History Father Migraine Mother Alzheimer disease Diabetes Hypertension Depression Cancer Mental health disorder Social History Household Members: Children Housing: Apartment Are you a primary career development coordinator/teacher to a significant other at home: No Do you presently have visiting nurse or other home services: No Alcohol intake: current Alcohol intake frequency: holidays/special occasions only Alcohol type: beer and other Patient Tobacco Use Status: Former Tobacco user Tobacco use type: Cigarette e-Cigarette/Vaping Use: Never Used Second Hand Smoke Exposure: No service: No Current occupational status: retired Cognitive needs: No Hearing needs: No Vision needs: Yes Female Reproductive History Menstrual Age of Menarche: 14 Total pregnancies: 3 Full term: 3 Date of Mammogram: 10/01/23 (bi rad 1) Physical Exam Vital Signs: Last Vital Signs BP 130/72 08/31/25 10:25 BMI result Body Mass Index 31.5 Const General: healthy appearing, comfortable, no acute distress, well developed and alert Nutritional Appearance: average body habitus Orientation/consciousness: patient oriented x3 Limitations: no limitations HEENT Head: Yes normocephalic Neck Neck: Yes normal visual inspection Chest Chest palpation & inspection: normal inspection of the chest Breast/axilla inspection: normal inspection of the breasts and normal inspection of the axillae Breast/axilla palpation: normal palpation of the breasts and normal palpation of the axillae Resp Effort & Inspection: normal respiratory effort GI Inspection: Yes normal to inspection, No Abdominal wall edema and No distended Palpation (GI): Soft to palpation and nontender Other: Normal external exam and moist vagina speculum exam deferred as not necessary today. Bimanual revealed no pathology uterus is surgically absent patient had good tone with Kegel. General: Yes bladder normal to palpation External Female Exam: normal external appearance and normal appearance of the urethra Bimanual exam- vagina & uterus: normal bimanual exam, uterine size normal, bladder normal to palpation, consistency normal, uterine mobility normal, uterine shape normal, non-tender and no cervical motion tenderness Bimanual Exam- Adnexa, other: normal adnexae, no masses, normal and No adnexal tenderness Neuro General: patient oriented x3 Assessment & Plan Assessment & Plan (1) Perimenopause: Code(s): N95.1 - Menopausal and female climacteric states Category: Medical (2) Well woman exam with routine gynecological exam: Code(s): Z01.419 - Encounter for gynecological examination (general) (routine) without abnormal findings Category: Medical Plan -----Discussed in this visit the following: healthy balanced diet, regular and consistent exercise, getting recommended health screens, doing the best she can for her particular health concerns, kegel exercises, pap smear screening and followup recommendations, mammography screening and SBE, normal changes in cycles in her life stage--- . Reviewed past discussions about her history of hysterectomy and no history of abnormal Pap smear so therefore she does not need Pap smears any longer. She is not having any tours captain symptoms of any sort no testing was necessary today She will follow-up as planned for her tachycardic symptoms and with her PCC. Her next mammogram has been ordered as well as other testing per her PCC for bone scan. Reviewed value of Lyn's, Coding Level of Care Code Est Pt Prev Care 40-64y(13851) Diagnoses Perimenopause N95.1 Well woman exam with routine gynecological exam Z01.419
[2025-08-31 10:25] VITALS: BP 130/72; BMI 31.5
--- OUTSIDE RECORDS SUMMARY | 2025-08-31 11:19 | XMS_ITS | Clinical Summary ---
Author Organization [facility] Address [address] [place] [address] Care Team Providers Care Locomotive Engineer Electric Name Role Phone Elen Chilel [facility] Primary Care Provider [phone] Source Comments PLEASE NOTE, if this patient [...] Charting 07/14/2024 07/12/2023 Dental Prophy 07/18/2024 07/16/2023 Hypertension Screening (#1) 08/20/2024 Alcohol and Drug Screen 12/02/2024 Depression Annual Screen 12/02/2024 [id number] ( - season) 2025 Imm-Influenza (#1) 2025 Dental FMX/Pano 07/14/2028 07/12/2023 [...] Most Recently Relevant to Health [place] Care Teams Locomotive Engineer Electric Relationship Specialty Start Date End Date Elen Chilel FNP [address] [place] [id number] PCP - General 06/15/19
== END 2025-08-31 11:46 | disposition home or self-care (01) ==
LOC: HO.HWSM 10:14
PROVIDERS: PCP Internal Medicine; Visit Provider Advanced Practice Midwife
DX: Z01.419 Encounter for gynecological examination (general) (routine) without abnormal findings (principal); N95.1 Menopausal and female climacteric states
CPT/HCPCS: 99396; 99459

== ENCOUNTER 2025-08-31 11:39 | Outpatient (AMB) | payer OTHER, SELFPAY ==
[2025-08-31 11:53] VITALS: BP 146/80; PULSE 71; TEMP 36.7; O2SAT 100; BMI 31.5
--- NOTE | 2025-08-31 11:53 | AM.OFFWIN_ITS ---
Intake Vital Signs 08/31/25 11:53 Height 5 ft 2 in Weight 172 lb BMI 31.5 BP 146/80 H Blood Pressure Location Lt brachial Pulse 71 Pulse Source Pulse Oximeter Temp 98.0 F Temp Source Oral Pulse Oximetry (%) 100 Oxygen Delivery Method Room Air Intake Visit Reasons: EP fast heart beats Intake Note: Pt ambulated (I) gait steady with family member to triage room. Amharic speaking, daughter does not speak much Turkish so she had grand-daughter on the phone who was interpreting. Pt a/o x 3, no shortness of breath/difficulty breathing noted. Speaks in full sentences. Pt c/o heart palpitations x 2 weeks with ambulation/lying down. Pt also c/o shortness of breath and difficulty breathing with ambulation. Pt stated hx of cardiomegaly. Vs 98% on room air, hr - 73. Lungs - cta. Heart sounds - regular. Pt's skin pink warm and dry. Chloe Schwartz (PA-C) and Rhona (GROVER) aware. Pt roomed to 11. Patient Tobacco Use Status: Former Tobacco user Allergies penicillin G Allergy (Unknown, Verified 08/25/25 10:54) rash, swelling Do you need a note to return to daycare/school/sports/work: No HPI HPI Comments History of Present Illness Details Video spanish medical interpreter used for this visit. History of Present Illness - The patient is a 65-year-old female pr esenting with heart palpitations. - The palpitations have been occurring f or two weeks, primarily during physical activities such as walking or scrubbing, and occur three to four times a day. - The patient reports a history of palpi tations, but not as frequent as the current episode. - The palpitations are accompanied by sh ortness of breath, which improves upon resting or lying down. - The patient denies any chest pain, che k pain, or abdominal pain associated with the palpitations. - There is a history of hypertension, an d the patient is currently on lisinopril for blood pressure management. - The patient has no history of thyroid issues. - The patient denies any significant lif e stressors or changes that could contribute to anxiety. General: Cooperative, healthy appearing, comfortable, no acute distress and well developed Orientation: Patient oriented x3 Limitations: No limitations Head: Normal to inspection Ears: Hearing grossly normal bilaterally Nose: Normal External nose present Face and sinus: Normal facial exam Eyes: Appearance normal, both eyes and all related structures Neck: Normal visual inspection and Yes full ROM Respiratory: Normal respiratory effort and able to speak in complete sentences. Clear to auscultation throughout, no wheezes, rales and rhonchi. Cardiac: Regular rate and rhythm, Normal S1 and S2, no murmurs, rubs or gallops Skin: No rashes or lesions noted Neuro: Patient oriented x3, gait normal Extremities: Normal to inspection Review of Systems - Cardiovascular: Reports palpitations d uring physical activity. Denies chest pain. - Respiratory: Reports dyspnea on exerti on. Denies cough or wheezing. - Neurological: Denies dizziness or sync ope. - Endocrine: Denies thyroid issues. All systems reviewed and are unremarkable except as noted in HPI [facility] Medical History Screening for cervical cancer Physical exam Venous insufficiency Left sided abdominal pain Left leg pain Pre-op evaluation Abdominal bloating Constipation Mild recurrent major depression Cataracts, bilateral Surgical History H/O: hysterectomy H/O colonoscopy H/O esophagogastroduodenoscopy History of cholecystectomy History of Family History Father Migraine Mother Alzheimer disease Diabetes Hypertension Depression Cancer Mental health disorder Social History Household Members: Children Housing: Apartment Are you a primary md do resident urgent care to a significant other at home: No Do you presently have visiting nurse or other home services: No Alcohol intake: current Alcohol intake frequency: holidays/special occasions only Alcohol type: beer and other Patient Tobacco Use Status: Former Tobacco user Tobacco use type: Cigarette e-Cigarette/Vaping Use: Never Used Second Hand Smoke Exposure: No service: No Current occupational status: retired Cognitive needs: No Hearing needs: No Vision needs: Yes Female Reproductive History Menstrual Age of Menarche: 14 Physical Exam Vital Signs: Last Vital Signs Temp 98.0 F 08/31/25 11:53 Pulse 71 08/31/25 11:53 BP 146/80 H 08/31/25 11:53 Pulse Ox 100 08/31/25 11:53 Oxygen Delivery Method Room Air 08/31/25 11:53 BMI result Body Mass Index 31.5 Assessment & Plan Assessment & Plan (1) Palpitations: Code(s): R00.2 - Palpitations Plan: Assessment and Plan Heart palpitations - VSS, pt well appearing and PE unremarkable. - A Holter monitor was ordered already by Katia reyna who saw her yesterday. - A thyroid function test and metabolic panel + mag will be conducted to rule out thyroid dysfunction or other imbalances. - The patient is advised to follow up with Dr. Miller for further management, she has an appt 09/13 - Advised if any chest pain, dizziness, weakness, abdominal pain, sweating, nausea or back pain begins with the heart palpitations to seek emergent medical care. She is not currently experiencing any of these symptoms. Patient was informed and verbally consented to the use of an ambient scribe for clinic note documentation during this visit. Orders: Orders TSH reflex Free T4 Today R00.2 - Palpitations Comprehensive Met. Panel Today R00.2 - Palpitations Magnesium Today R00.2 - Palpitations Coding Level of Care Code Est Pt Level 4 (15322) Diagnoses Palpitations R00.2
== END 2025-08-31 12:28 | disposition home or self-care (01) ==
PROVIDERS: PCP Internal Medicine; Visit Provider Physician Assistant
DX: R00.2 Palpitations (principal)

== ENCOUNTER 2025-09-07 09:32 | Outpatient (REF) | payer OTHER, SELFPAY ==
--- NOTE | ~2025-09-07 | MM_ITS ---
EXAMINATION: MM SCREENING DIGITAL BREAST TOMOSYNTHESIS, BILATERAL CLINICAL INFORMATION: Screening. Asymptomatic. COMPARISON: Mammography: Comparison is made with available priors TECHNIQUE: Digital breast mammography with tomosynthesis is performed in both the craniocaudal and mediolateral oblique views along with computer-aided detection (CAD). FINDINGS: There are scattered areas of fibroglandular density. Right marker clip. There are no significant masses, abnormal calcifications, or other abnormalities. MM/MM tomosynthesis screening BI IMPRESSION: No mammographic evidence of malignancy. ASSESSMENT: BI-RADS Category 2: Benign RECOMMENDATION: Routine annual mammography screening. 1 year F/U This examination should not preclude the clinical evaluation of a suspicious palpable abnormality. This patient's information was entered into a reminder system with a target due date for their next mammogram. Electronically signed by: Fouzia Cruz DO 09/14/2025 04:18 PM EDT
--- NOTE | ~2025-09-07 | MM_ITS ---
EXAMINATION: LVA MORPHOMETRY CLINICAL INDICATION: Asymptomatic menopausal state. TECHNIQUE: Your patient completed a vertebral fracture assessment using the [employer] DXA system (software version: 13.1 manufactured by [employer]. The following summarizes the results of our evaluation. MEDICATIONS: None listed. LVA MORPHOMETRY RESULTS: Evaluation of the thoracolumbar spine from L1-L4 was performed. Image quality is good. Bone mineral density 1.084 g/sq cm. Z score 0.2, T score -0.8. Normal. Femur: Left femoral neck: BMD is 0.797 g/sq cm. Z score -0.6. T score -1.7. Osteopenia. Total left femur: Bone mineral density is 0.874 g/sq cm. Z score -0.3, T score -1.1. Osteopenia. ASSESSMENT: The patient's BD falls into the osteopenia category based on the lowest T-score value of -1.7 in the left femoral neck. Bone density is between 10 and 25% below young normal. Fracture risk is moderate. Consider treatment. Follow-up exam recommended in 2 years. RECOMMENDATIONS: All patients should ensure an adequate intake of dietary calcium (1200 mg/d) and vitamin D (400-800 IU/d). Effective therapies are now available in the form of bisphosphonates, (alendronate, ibandronate, risedronate, zoledronic acid), antiresorptive agents (calcitonin, estrogen+progesterone and raloxifene), anabolic agent (teriparatide), and RANKL inhibitor (denosumab). These therapies may reduce vertebral, hip and other fractures by up to 50%. FOLLOWUP: People with diagnosed cases of osteoporosis, high risk for fracture, or current vertebral fractures should have regular bone mineral density tests. The frequency of followup vertebral fracture assessment tests should be determined based on clinical circumstances. Often times, testing frequency will be based on rapidly progressing disease, or the addition or elimination of therapy to treat the disease. Electronically signed by: Mayelin Gaspar MD 09/07/2025 10:36 AM EDT
--- NOTE | 2025-09-07 10:29 | HM_ITS ---
Conclusion: 1. Patient was monitored for total period of 2 days 2. Baseline was normal sinus rhythm with average heart of 67 beats per minute 3. Rare ectopy noted 4. No significant pauses noted 5. Patient marked 3 events with symptoms reported as tachycardia, 2 of the events correlating with isolated PVCs MTDD
--- OUTSIDE RECORDS SUMMARY | 2025-09-07 10:49 | XMS_ITS | Clinical Summary ---
Author Organization [facility] Address [address] [place] [address] Care Team Providers Care Contract Designer Name Role Phone Elen Chilel [facility] Primary Care Provider [phone] Source Comments PLEASE NOTE, if this patient [...] Drug Screen 12/02/2024 Depression Annual Screen 12/02/2024 [id number] ( - season) 2025 Imm-Influenza (#1) 2025 [...] Most Recently Relevant to Health Maintenance [place] Care Teams Contract Designer Relationship Specialty Start Date End Date Elen Chilel FNP [address] [place] [id number] PCP - General 06/15/19
== END 2025-09-07 09:33 | disposition home or self-care (01) ==
LOC: HO.MAMMO 09:32
PROVIDERS: PCP Internal Medicine; Visit Provider Internal Medicine
DX: Z12.31 Encounter for screening mammogram for malignant neoplasm of breast (principal); R00.0 Tachycardia, unspecified; Z78.0 Asymptomatic menopausal state
CPT/HCPCS: 77063; 77067; 77080; 93225

== ENCOUNTER → 2025-09-07 10:00 | Outpatient (BNV) | payer OTHER, SELFPAY | PROVIDERS: PCP Internal Medicine; Visit Provider Radiology Diagnostic Radiology | DX: E28.39 Other primary ovarian failure (principal) | CPT/HCPCS: 77080 ==

== ENCOUNTER → 2025-09-07 10:29 | Outpatient (BNV) | payer OTHER, SELFPAY | PROVIDERS: PCP Internal Medicine; Visit Provider Internal Medicine Cardiovascular Disease | DX: I49.3 Ventricular premature depolarization (principal) | CPT/HCPCS: 93227 ==

== ENCOUNTER 2025-09-13 13:56 | Outpatient (AMB) | payer OTHER, SELFPAY ==
--- OUTSIDE RECORDS SUMMARY | 2025-09-13 14:00 | XMS_ITS | Clinical Summary ---
Author Organization [facility] Address [address] [place] [address] Care Team Providers Care Records Specialist Name Role Phone Elen Chilel [facility] Primary Care Provider [phone] Source Comments PLEASE NOTE, if this patient [...] Drug Screen 12/02/2024 Depression Annual Screen 12/02/2024 [id number] ( - season) 2025 Imm-Influenza (#1) 2025 [...] Most Recently Relevant to Health Maintenance [place] Care Teams Records Specialist Relationship Specialty Start Date End Date Elen Chilel FNP [address] [place] [id number] PCP - General 06/15/19
[2025-09-13 14:04] VITALS: BP 110/66; PULSE 61; RESP 18; TEMP 36.2; O2SAT 99; BMI 32.0
--- NOTE | 2025-09-13 14:04 | A.OFFPC_ITS ---
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 The Holter monitor test conducted pr eviously showed episodes of sinus tachycardia, but these were not deemed dangerous. The patient reports that the episodes of tachycardia are not frequent, and her blood pressure readings have generally been stable, although there are occasional spikes. The patient also underwent a bone density scan, which revealed osteopenia. This condition indicates a reduction in bone density, placing her at an intermediate risk between normal bone health and osteoporosis. She was advised to take vitamin D and calcium supplements and to engage in regular physical activity to mitigate the risk of progression to osteoporosis. [facility] Medical History Screening for cervical cancer Physical exam Venous insufficiency Left sided abdominal pain Left leg pain Pre-op evaluation Abdominal bloating Constipation Mild recurrent major depression Cataracts, bilateral Surgical History H/O: hysterectomy H/O colonoscopy H/O esophagogastroduodenoscopy History of cholecystectomy History of Family History Father Migraine Mother Alzheimer disease Diabetes Hypertension Depression Cancer Mental health disorder Social History Household Members: Children Housing: Apartment Are you a primary children's zoo caretaker to a significant other at home: No Do you presently have visiting nurse or other home services: No Alcohol intake: current Alcohol intake frequency: holidays/special occasions only Alcohol type: beer and other Patient Tobacco Use Status: Former Tobacco user Tobacco use type: Cigarette e-Cigarette/Vaping Use: Never Used Second Hand Smoke Exposure: No service: No Current occupational status: retired Cognitive needs: No Hearing needs: No Vision needs: Yes Female Reproductive History Menstrual Age of Menarche: 14 Questionnaire Thrive Questionnaire Date Thrive assessed: 07/08/25 I am a: Parent/Caregiver What is your living situation today?: I choose not to answer this question Within the past 12 months, did the food you bought not last and you didn't have the money to get more?: I choose not to answer this question Within the past 12 months, did you worry whether your food would run out before you got money to buy more?: I choose not to answer this question Do you have trouble paying for medicines?: I choose not to answer this question Do you have trouble getting transportation to medical appointments?: I choose not to answer this question Do you have trouble paying your heating and electricity bill?: I choose not to answer this question Do you have trouble taking care of your child, family member or friend?: I choose not to answer this question Do you have trouble with day-to-day activities such as bathing, preparing meals, shopping, managing finances, etc.?: I choose not to answer this question Are you currently unemployed and looking for a job?: I choose not to answer this question Are you interested in more education?: I choose not to answer this question Please select the resources that you would like help with: None Currently or been in a relationship where the following occur: No concerns reported THRIVE Score: 0 AUDIT C Alcohol Use Questionnaire (AUDIT-C) 2. How many drinks containing alcohol do you have on a typical day when you are drinking?: 1 or 2 3. How often do you have six or more drinks on one occasion?: Never Total Score: 0 LEON-7 AMB Questionnaire LEON-7 Date LEON - 7 assessed: 07/15/25 Source: Developed by Drs. Elfego Parra, Pratima Jimenez, Timothy Mayen and colleagues, with an educational maia from [employer]. Review of Systems Const Details: Not done Physical exam (Primary Care) Vital Signs: Last Vital Signs Temp 97.1 F 09/13/25 14:04 Pulse 61 09/13/25 14:04 Resp 18 09/13/25 14:04 BP 110/66 09/13/25 14:04 Pulse Ox 99 09/13/25 14:04 Oxygen Delivery Method Room Air 09/13/25 14:04 BMI result Body Mass Index 32.0 Tobacco/Smoking Status: Tobacco use Status Tobacco use date assessed 09/13/25 09/13/25 14:15 Patient Tobacco Use Status Former Tobacco user 09/13/25 14:15 Tobacco use type Cigarette 09/13/25 14:15 e-Cigarette/Vaping Use Never Used 09/13/25 14:15 Thrive Assessment: Date of Thrive Assessment Date Thrive assessed 07/08/25 09/13/25 14:15 Currently or been in a relationship where the following occur: No concerns reported Const Other: Pertinent findings are in BOLD GENERAL APPEARANCE NAD, activity normal for age, well developed/ well nourished, no cyanosis, pallor, or diaphoresis. EYES lids/conjunctiva normal. EARS/NOSE/THROAT Mucous membranes moist, nares normal, lips/teeth normal uvula midline without oral pharyngeal erythema, exudate or swelling TMs normal bilaterally. No lymphangitis/lymphedema. HEAD/NECK normocephalic atraumatic, no facial trauma, neck is supple. RESPIRATORY respiratory effort normal, speaks in full sentences, no tripod position, no accessory muscle use. Lungs clear to auscultation without rhonchi, wheezes, rales CARDIAC Regular rate and rhythm, no edema. ABDOMINAL Soft, ND/NT. No evidence of fluid wave. No pulsatile masses on exam, rebound tenderness, Daley sign or pain over Mcburney's point. MUSCLES/EXTREMITIES No abnormal range of motion, no swelling. SKIN Warm, pink and dry. No rashes, dermatoses, petechiae or lesions. NEUROLOGICAL Speech is clear and appropriate. Normal level of consciousness. Gait and coordination are normal. 5/5 strength in all extremities. PSYCH Normal mood and affect. Judgement/competence is appropriate Coding Level of Care Code Est Pt Level 4 (91209) Diagnoses Palpitations R00.2 Osteopenia M85.80 Hypertension I10 Time Spent (min) 30 Assessment & Plan Assessment & Plan (1) Palpitations: Code(s): R00.2 - Palpitations Category: Medical Plan: - Monitor frequency and severity of episodes. - Consider medication if episodes become frequent and problematic - Holter monitor positive for sinus tachycardia. Otherwise negative. (2) Osteopenia: Code(s): M85.80 - Other specified disorders of bone density and structure, unspecified site Category: Medical Plan: - Initiate vitamin D and calcium supplementation. - Encourage regular physical activity and fall prevention strategies. (3) Hypertension: Code(s): I10 - Essential (primary) hypertension Category: Medical Plan: - Continue current blood pressure monitoring. - Discuss potential medication adjustments with Dr. Matias if necessary. Plan During the visit, we discussed the results of the Holter monitor, which showed sinus tachycardia. The patient was informed about the diagnosis of osteopenia and the importance of vitamin D and calcium supplementation, along with regular exercise to prevent progression to osteoporosis. We also reviewed her blood pressure management, noting that her current readings are stable, and advised her to consult Dr. Morales for any necessary medication adjustments. Medications: New calcium carbonate-vitamin D3 500 mg-10 mcg (400 unit) (Oyster Shell Calcium- Vitamin D3) 1 tab PO DAILY 90 tabs 3RF
== END 2025-09-13 14:34 | disposition home or self-care (01) ==
LOC: HO.HMCH 13:57
PROVIDERS: PCP Internal Medicine; Visit Provider Internal Medicine
DX: R00.2 Palpitations (principal); M85.80 Other specified disorders of bone density and structure, unspecified site; I10 Essential (primary) hypertension

== ENCOUNTER → 2025-09-13 13:56 | Outpatient (BNVA) | payer OTHER, SELFPAY | PROVIDERS: PCP Internal Medicine; Visit Provider Internal Medicine | DX: R00.2 Palpitations (principal); M85.80 Other specified disorders of bone density and structure, unspecified site; I10 Essential (primary) hypertension; Z72.0 Tobacco use | CPT/HCPCS: 99212 ==